=== PATIENT | female | born 1970 | race African-American/Black ===

== ENCOUNTER 2019-04-18 09:17 | Emergency (ER) | payer OTHER, SELFPAY ==
[2019-04-18 10:29] LABS: #Basophils 0.1 thou/uL (0.0-0.2); #Lymphocytes 3.7 thou/uL (1.20-3.40); #Monocytes 0.7 thou/uL (0.11-0.59); #Neutrophils 10.9 thou/uL (1.40-6.50); %Basophils 0.9 % (0.0-1.0); %Eosinophils 0.2 % (0.0-10.0); %Lymphocytes 23.8 % (21.0-51.0); %Monocytes 4.2 % (0.0-10.0); %Neutrophils 70.9 % (42.0-75.0); Mean Corpuscular HGB CONC 32.4 g/dL (32.0-36.0); Mean Corpuscular Hemoglobin 26.1 pg (27.0-31.0); Mean Corpuscular Volume 80.6 fL (78.0-98.0); Mean Platelet Volume 6.9 fL (7.4-10.4); Platelet Count 382 thou/uL (130-400); RBC Distribution Width 14.8 % (11.5-14.5); Red Blood Cell (RBC) Count 4.61 mill/uL (4.20-5.40); White Blood Cell (WBC) Count 15.4 thou/uL (4.8-10.8)
[2019-04-18 10:31] LABS: BHCG - Serum Negative (NEGATIVE); Pregs Control Background? CLEAR/WHITE (CLR/WHITE); Pregs Control Bar Appear? YES (CONTROL BAR)
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
[2019-04-18 10:51] LABS: ALT (SGPT) 24 U/L (8-55); AST (SGOT) 14 U/L (5-34); Albumin 3.8 g/dL (3.5-5.0); Alkaline Phosphatase 74 U/L (40-150); Anion Gap 16 mmol/L (10-20); BUN (Urea Nitrogen) 15 mg/dL (7.0-18.7); Bilirubin, Total 0.2 mg/dL (0.2-1.2); Calc. Creatinine Clearance 0 mL/min (70-130); Calcium 9.5 mg/dL (7.8-10.44); Carbon Dioxide 26 mmol/L (22-29); Chloride 97 mmol/L (98-107); Estimated GFR-MDRD 72; Globulin 3.2 g/dL (2.4-3.5); Glucose 203 mg/dL (70-105); Potassium 4.2 mmol/L (3.5-5.1); Sodium 135 mmol/L (136-145)
== END 2019-04-18 11:35 | disposition home or self-care (01) ==
LOC: ERS 09:17
DX: I10 Essential (primary) hypertension (principal); Z91.14 Patient's other noncompliance with medication regimen; E11.9 Type 2 diabetes mellitus without complications; F41.9 Anxiety disorder, unspecified; F31.9 Bipolar disorder, unspecified; Z79.84 Long term (current) use of oral hypoglycemic drugs; Z79.899 Other long term (current) drug therapy; Z79.51 Long term (current) use of inhaled steroids
CPT/HCPCS: 36415; 71045; 80053; 83880; 84484; 84703; 85025; 93005

== ENCOUNTER 2019-08-02 15:19 | Inpatient (IN) | payer MEDICAID, OTHER ==
[~2019-08-02 15:19] MED LIST: Iopamidol 370 76% 100 ML VIAL ONE
[2019-08-02] MEDS ORDERED: Acetaminophen 500 MG TAB ONE (15:28)
[2019-08-02 16:55] LABS: Hemoglobin 11.8 g/dL (12.0-16.0); Mean Corpuscular HGB CONC 33.5 g/dL (32.0-36.0); Mean Corpuscular Hemoglobin 26.1 pg (27.0-31.0); Mean Platelet Volume 7.3 fL (7.4-10.4); Platelet Count 319 thou/uL (130-400); RBC Distribution Width 14.3 % (11.5-14.5); White Blood Cell (WBC) Count 10.2 thou/uL (4.8-10.8)
[2019-08-02 17:15] LABS: Band 2 % (5-11); Lymphocytes 7 % (21-51); MDiff Complete? YES; Monocytes 9 % (0-10); Neutrophil 82 % (42-75); Platelet Morphology Comment Appears Adequate
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
[2019-08-02 17:24] LABS: ALT (SGPT) 10 U/L (8-55); AST (SGOT) 18 U/L (5-34); Albumin 3.9 g/dL (3.5-5.0); Alkaline Phosphatase 80 U/L (40-110); Anion Gap 17 mmol/L (10-20); BUN (Urea Nitrogen) 6 mg/dL (7.0-18.7); Bilirubin, Total 0.3 mg/dL (0.2-1.2); Calc. Creatinine Clearance 0 mL/min (70-130); Carbon Dioxide 18 mmol/L (22-29); Chloride 104 mmol/L (98-107); Estimated GFR-MDRD Greater than 90; Globulin 3.6 g/dL (2.4-3.5); Glucose 136 mg/dL (70-105); Lipase 21 U/L (8-78); Potassium 3.6 mmol/L (3.5-5.1); Protein, Total 7.5 g/dL (6.0-8.3); Sodium 135 mmol/L (136-145)
[2019-08-02] MEDS ORDERED: cefTRIAXone\\ROCEPHIN 2 GM VIAL ONE (17:42)
[2019-08-02 18:36] LABS: Bilirubin Negative (Negative); Blood, Urine Negative (Negative); Clarity Clear (Clear); Glucose, Urine (Dipstick) Normal (Negative); Leukocyte Negative Leu/uL (Negative); Nitrite Negative (Negative); Protein, Urine (Dipstick) Negative (Neg-Trace); Urobilinogen Normal mg/dL (Less than 2)
[2019-08-02 18:38] LABS: Pregnancy Test - Urine (BHCG) Negative (Negative); Pregu Control Background? CLEAR/WHITE (CLR/WHITE); Pregu Control Bar Appear? YES (CONTROL BAR); Specific Gravity 1.004 (1.002-1.036)
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
[2019-08-02 20:42] LABS: Troponin I 0.028 ng/mL (< 0.028)
[2019-08-02] MEDS ORDERED: Benzonatate 100 MG CAP PO PRN (20:54)
[2019-08-02] MEDS ORDERED: Ondansetron ODT 4 MG TAB PO PRN (20:54)
[2019-08-02] MEDS ORDERED: Sodium Chloride 0.9% 1,000 ML IV SCH (20:54)
[2019-08-02] MEDS ORDERED: Vancomycin HCl 1 GM in Sodium Chloride 0.9% 250 ML 300 ML IVPB SCH (21:00)
[2019-08-02 21:05] VITALS: BMI 48.6
[2019-08-02] MEDS: Famotidine 20 MG TAB PO SCH (21:34)
[2019-08-02] MEDS: hydrALAZINE 20 MG/ML VIAL SLOW IVP PRN (21:34)
[2019-08-02] MEDS: Acetaminophen 500 MG TAB PO PRN (21:35)
[2019-08-02] MEDS ORDERED: Vancomycin HCl 2.5 GM in Sodium Chloride 0.9% 500 ML IVPB SCH (22:00)
[2019-08-02] MEDS: Ondansetron PF 4 MG/2 ML Vial IVP PRN (22:00)
[2019-08-02 23:29] LABS: Troponin I 0.118 ng/mL (< 0.028)
[2019-08-02] MEDS: methylPREDNISolone Sod Succ 40 MG VIAL IVP SCH (23:51)
[2019-08-03 00:19] LABS: Lactic Acid 2.7 mmol/L (0.5-2.2)
[2019-08-03] MEDS ORDERED: Melatonin 3 MG TAB PO PRN (01:43)
[2019-08-03 03:47] LABS: CKMB 2.6 ng/mL (0-6.6)
[2019-08-03 05:34] LABS: Band 4 % (5-11); Hemoglobin 11.7 g/dL (12.0-16.0); Lymphocytes 2 % (21-51); MDiff Complete? YES; Mean Corpuscular Hemoglobin 26.3 pg (27.0-31.0); Mean Corpuscular Volume 79.5 fL (78.0-98.0); Monocytes 1 % (0-10); Neutrophil 93 % (42-75); Platelet Count 317 thou/uL (130-400); RBC Distribution Width 14.5 % (11.5-14.5); Red Blood Cell (RBC) Count 4.44 mill/uL (4.20-5.40); White Blood Cell (WBC) Count 11.4 thou/uL (4.8-10.8)
[2019-08-03 05:49] LABS: Anion Gap 16 mmol/L (10-20); BUN (Urea Nitrogen) 4 mg/dL (7.0-18.7); Calc. Creatinine Clearance 185 mL/min (70-130); Calcium 8.8 mg/dL (7.8-10.44); Carbon Dioxide 18 mmol/L (22-29); Chloride 105 mmol/L (98-107); Estimated GFR-MDRD Greater than 90; Glucose 179 mg/dL (70-105); Potassium 3.8 mmol/L (3.5-5.1); Sodium 135 mmol/L (136-145)
[2019-08-03] MEDS: Cefepime 2 GM in Sodium Chloride 0.9% 100 ML IVPB SCH ×2 (06:10→18:06)
[2019-08-03] MEDS: methylPREDNISolone Sod Succ 40 MG VIAL IVP SCH ×4 (06:11→23:59)
[2019-08-03] MEDS: Mometasone/Formoterol 120 PUFF INHALER INH SCH ×2 (07:29→18:40)
[2019-08-03] MEDS: hydrALAZINE 20 MG/ML VIAL SLOW IVP PRN (08:44)
[2019-08-03] MEDS: Famotidine 20 MG TAB PO SCH ×2 (08:45→20:41)
[2019-08-03] MEDS: Acetaminophen 500 MG TAB PO PRN (08:46)
[2019-08-03] MEDS: Ondansetron PF 4 MG/2 ML Vial IVP PRN ×2 (08:46→18:10)
[2019-08-03] MEDS ORDERED: FLU VACC QS2019-20(6MOS UP)/PF 60 MCG/0.5 ML SYRINGE IM ONE (09:00)
[2019-08-03] MEDS ORDERED: BENZONATATE 200 MG PO PRN (09:32)
[2019-08-03] MEDS ORDERED: Lisinopril 10 MG TAB PO SCH (10:15)
[2019-08-03] MEDS ORDERED: Losartan 25 MG TAB PO SCH (10:15)
[2019-08-03] MEDS: Aspirin 325 mg Enteric Coated Tablet PO SCH (10:28)
[2019-08-03] MEDS: Ketorolac Tromethamine 30 MG/ML VIAL IVP SCH ×3 (10:28→21:02)
[2019-08-03] MEDS: Sodium Chloride 0.9% 1,000 ML IV SCH ×3 (10:31→18:07)
[2019-08-03 13:26] LABS: Amphetamine Not Detected (NotDetected); Barbiturates Screen Not Detected (NotDetected); Benzodiazepine Screen Not Detected (NotDetected); Cocaine Metabolite Screen Not Detected (NotDetected); Medtox Control Line Valid? VALID (VALID); Medtox Reader # READER 1; Methadone Not Detected (NotDetected); Methamphetamine Not Detected (NotDetected); Opiate Screen Not Detected (NotDetected); Oxycodone Screen Not Detected (NotDetected); Phencyclidine (PCP) Not Detected (NotDetected); THC/Cannabinoid Screen Detected (NotDetected); Tricyclic Screen Not Detected (NotDetected)
[2019-08-03 14:29] LABS: Troponin I 0.324 ng/mL (< 0.028)
[2019-08-03] MEDS: metFORMIN 500 MG TAB PO SCH (16:20)
--- NOTE | 2019-08-03 16:29 | PDOC.HOSPP ---
- Subjective Encounter Date: 08/03/19 Encounter Time: 16:20 Subjective: f/u for sepsis suspected from pulmonary source, asthmatic bronchitis and NSTEMI from demand ischemia. Feels better this pm and appetite ok. - Objective Vital Signs & Weight: Vital Signs (12 hours) Temp Pulse Resp BP BP BP Pulse Ox 08/03/19 15:48 98.9 F 97 16 149/93 H 97 08/03/19 14:11 101 H 18 08/03/19 12:29 14 08/03/19 11:51 99.1 F 108 H 28 H 134/93 H 96 08/03/19 11:00 107 H 20 08/03/19 10:27 145/85 H 08/03/19 08:30 101.8 F H 113 H 16 187/118 H 96 08/03/19 08:00 96 08/03/19 07:29 111 H 20 95 Weight Weight 301 lb 6.4 oz I&O: 08/02/19 08/03/19 08/04/19 06:59 06:59 06:59 Intake Total 1555 Balance 1555 Result Diagrams: 08/03/19 05:07 08/03/19 05:07 Additional Labs: Accuchecks 08/03/19 08/03/19 10:20 05:41 POC Glucose 195 H 165 H Microbiology 08/02/19 15:40 Nasal swab Influenza Types A,B Direct EIA - Final 08/02/19 18:10 Urine voided Urine Culture - Preliminary 08/02/19 16:34 Venous blood - Right Arm Blood Culture - Preliminary Specimen has been received and culture in progress. No Growth to date. 08/02/19 16:34 Venous blood - Left Hand Blood Culture - Preliminary Specimen has been received and culture in progress. No Growth to date. Laboratory Tests 08/02/19 08/02/19 08/02/19 16:40 16:40 20:07 WBC 10.2 Troponin I Less than 0.010 0.028 B-Natriuretic Peptide U Cannabinoids Screen 08/02/19 08/03/19 08/03/19 22:53 02:31 12:40 WBC Troponin I 0.118 H 0.255 H B-Natriuretic Peptide U Cannabinoids Screen Detected H 08/03/19 08/03/19 13:37 13:37 WBC Troponin I 0.324 H* B-Natriuretic Peptide 458.1 H U Cannabinoids Screen EKG Reviewed by me: Yes (Tele - SR) Hospitalist ROS - Medication Medications: Active Medications Generic Name Dose Route Start Last Admin Trade Name Sahil PRN Reason Stop Dose Admin Acetaminophen 1,000 mg 08/02/19 20:54 08/03/19 08:46 Tylenol PO 1,000 mg Q6H PRN Administration Mild Pain (1-3) Albuterol/Ipratropium 3 ml 08/02/19 22:30 08/03/19 14:11 Duoneb NEB 3 ml [id number] DIONE Administration Aspirin 325 mg 08/03/19 09:00 08/03/19 10:28 Ecotrin PO 325 mg DAILY DIONE Administration Famotidine 20 mg 08/02/19 21:00 08/03/19 08:45 Pepcid PO 20 mg BID DIONE Administration Hydralazine HCl 10 mg 08/02/19 20:54 08/03/19 08:44 Apresoline SLOW IVP 10 mg Q4H PRN Administration SBP > 180 and HR < 70 Cefepime HCl 2 gm/ Sodium 100 mls @ 200 mls/hr 08/03/19 06:00 08/03/19 06:10 Chloride IVPB 100 mls 0600,1800 DIONE Administration Vancomycin HCl 2 gm/ Sodium 500 mls @ 250 mls/hr 08/03/19 09:00 08/03/19 10: 31 Chloride IVPB 500 mls Q12HR DIONE Administration Sodium Chloride 1,000 mls @ 100 mls/hr 08/03/19 09:40 08/03/19 16:23 Normal Saline 0.9% IV 1,000 mls .Q10H DIONE Administration Ketorolac Tromethamine 30 mg 08/03/19 10:00 08/03/19 16:11 Toradol IVP 08/08/19 10:01 30 mg 0400,1000,1600,2200 DIONE Administration Melatonin 3 mg 08/03/19 01:43 08/03/19 02:24 Melatonin PO 3 mg HS PRN Administration Insomnia Metformin HCl 1,000 mg 08/03/19 17:00 08/03/19 16:20 Glucophage PO 1,000 mg BID-WM DIONE Administration Methylprednisolone Sodium Succinate 40 mg 08/02/19 23:59 08/03/19 12:17 Solu-Medrol IVP 40 mg Q6HR DIONE Administration Mometasone Furoate/Formoterol Fumar 2 puff 08/03/19 06:30 08/03/19 07:29 Dulera 200 Mcg/5 Mcg Inhaler INH 2 puff BID-RT DIONE Administration Ondansetron HCl 4 mg 08/02/19 20:54 08/03/19 08:46 Zofran IVP 4 mg Q6H PRN Administration Nausea/Vomiting - Exam General Appearance: NAD, awake alert Eye: PERRL, anicteric sclera ENT: normocephalic atraumatic, no oropharyngeal lesions Neck: supple, symmetric, no JVD, no thyromegaly, no lymphadenopathy Heart: RRR, no murmur, no gallops, no rubs, normal peripheral pulses Respiratory: no rales Respiratory - other findings: few exp wheezes, diminished in bases Gastrointestinal: soft, non-tender, non-distended, normal bowel sounds, no palpable masses Extremities: no cyanosis, no clubbing, no edema Skin: normal turgor, no lesions Neurological: cranial nerve grossly intact, no focal deficits, no new deficit Musculoskeletal: normal tone, normal strength Psychiatric: normal affect, A&O x 3 Hosp A/P (1) Sepsis Code(s): A41.9 - SEPSIS, UNSPECIFIED ORGANISM Status: Acute Plan: Suspected pulmonary source, continue Cefepime/Vancomycin, IVF's, await final blood cx results (2) Acute respiratory failure with hypoxia Code(s): J96.01 - ACUTE RESPIRATORY FAILURE WITH HYPOXIA Status: Acute Plan: Improved, continue pulmonary support, see below (3) Asthmatic bronchitis Code(s): J45.909 - UNSPECIFIED ASTHMA, UNCOMPLICATED Status: Acute Plan: Continue Solumedrol, Dulera, Duonebs, IV Cefepime/Vanc (4) NSTEMI (non-ST elevated myocardial infarction) Code(s): I21.4 - NON-ST ELEVATION (NSTEMI) MYOCARDIAL INFARCTION Status: Acute Plan: Type II VT, demand ischemia in context of sepsis, Cardiology consult appreciated (5) Cannabis abuse Code(s): F12.10 - CANNABIS ABUSE, UNCOMPLICATED Status: Chronic Plan: Cessation resources (6) HTN (hypertension) Code(s): I10 - ESSENTIAL (PRIMARY) HYPERTENSION Status: Chronic Qualifiers: Hypertension type: essential hypertension Qualified Code(s): I10 - Essential (primary) hypertension Plan: Resume home BP regimen, monitor clinical response - Plan plan discussed w/ family, continue antibiotics, social worker masters, respiratory therapy, DVT proph w/SCDs Stable currently Continue Solumedrol, Duonebs, Dulera Continue Cefepime/Vancomycin Cardiology consult appreciated AM lab: BMP, CBC, Troponin, Vanc trough
[2019-08-03] MEDS ORDERED: guaiFENesin/DM ER PO SCH (18:00)
[2019-08-03] MEDS ORDERED: Carvedilol 3.125 MG TAB PO SCH (18:30)
[2019-08-03] MEDS ORDERED: Amlodipine 5 MG TAB PO SCH (19:15)
[2019-08-03] MEDS: Montelukast Sodium 10 mg Tablet PO SCH (20:41)
[2019-08-03] MEDS: hydrOXYzine 25 MG TAB PO SCH (20:41)
[2019-08-03] MEDS: Atorvastatin Calcium 10 MG TAB PO SCH (20:41)
[2019-08-03] MEDS: Benzonatate 100 MG CAP PO PRN (20:48)
[2019-08-03] MEDS ORDERED: Pravastatin Sodium 40 MG TAB PO SCH (21:00)
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
--- NOTE | 2019-08-04 02:29 | CON ---
DATE OF CONSULTATION: 08/03/2019 Please refer the notes dictated by my nurse practitioner, Letha Hernandez. INDICATION FOR CONSULTATION: A 48-year-old female with a history of asthma, shortness of breath, chest discomfort and risk factors, coronary artery disease which include hypertension, diabetes, history of marijuana use, family history of coronary disease at a relatively young age. Both her parents in their 40s to 50s, had heart disease according to the patient and she also says she has high cholesterol. I do not see that listed as one of her diagnosis, but she is on Pravachol. I suspect she does have hypercholesterolemia. She presented to the emergency room mainly complaining of some discomfort when she coughed, but at that time, her cardiac enzymes were also indeterminate, which could indicate a type 2 myocardial infarction. Unfortunately, they have remained slightly elevated, but have actually trended downwards. Her BNP was also elevated at 458, but the first troponin I was 0.118 and then increased up to 0.255. The 3rd set was 0.324, but now has decreased back down to 0.27. The MB was negative at 2.6. She denies any previous cardiac history and has not had any previous cardiac workup that I can ascertain. At this time, she is relatively stable. She denies any chest pain except when she coughs and her EKG does not show any acute changes. She did have some nonspecific ST-segment changes in the lateral leads, but otherwise no significant abnormalities were noted. No ST-segment elevation was indicated. PAST MEDICAL HISTORY: Please refer the notes dictated by the nurse practitioner. SOCIAL HISTORY: Please refer the notes dictated by the nurse practitioner. FAMILY HISTORY: Please refer the notes dictated by the nurse practitioner. REVIEW OF SYSTEMS: Please refer the notes dictated by the nurse practitioner. MEDICATIONS: Please refer the notes dictated by the nurse practitioner. ALLERGIES: PLEASE REFER THE NOTES DICTATED BY THE NURSE PRACTITIONER. PHYSICAL EXAMINATION: GENERAL: Reveals a morbidly obese female, who is in no acute distress at this time. VITAL SIGNS: Her blood pressure is 149/93. She is afebrile. Heart rates in the 80s to 90s, it shows a normal sinus rhythm, respiratory rate is 20, O2 saturation is 99%. HEENT: Unremarkable. CHEST: Has decreased breath sounds throughout, but I do not hear any rales, rhonchi, or wheezing at this time. CARDIOVASCULAR: Heart sounds are also distant, but I did not hear any significant murmurs, heaves, thrills, bruits, or rubs. ABDOMEN: Morbidly obese. I cannot palpate any tenderness or masses. EXTREMITIES: Did show 1+ lower extremity edema. Pedal pulses are difficult to palpate, most likely due to the obesity and the edema. NEUROLOGIC: She appears to be relatively intact. SKIN: Warm and dry at this time. LABORATORY DATA: Noted for the cardiac enzymes. Her sodium is 135, potassium is 3.8. Her creatinine is 0.82 with a BUN 4. Blood sugar was 179. Hemoglobin is 11.7, WBC 11.4, platelet count was 317,000. Urinalysis was unremarkable. She does admit to smoking marijuana and then she did have a positive drug screen for cannabis. IMPRESSION: 1. Asthma and chronic obstructive pulmonary disease exacerbation with elevated cardiac enzymes, which most likely indicate type 2 [id number] elevation myocardial infarction, which most likely was associated with demand ischemia, associated with her asthma and chronic coughing, but would advise she undergo probably a 2-day protocol stress test to rule out evidence of underlying ischemia as a possible etiology of the abnormalities since she does have risk factors of coronary artery disease. 2. Diabetes, which will be dealt with by the primary care service. 3. Hypercholesterolemia. We will continue with statins. 4. Hypertension. We will need to re-evaluate her blood pressures and may need to adjust some of her medications, can certainly start her on amlodipine to help with the hypertension. We would hold off on beta blockers at this time due to her history of asthma. We are more than happy to continue to follow the patient with you. We will schedule her for stress testing tomorrow. Should she be found to have any significant abnormalities, then obviously cardiac catheterization may be indicated prior to discharge. Job ID: [id number]
[2019-08-04 05:00] LABS: Band 6 % (5-11); Hemoglobin 11.4 g/dL (12.0-16.0); Lymphocytes 10 % (21-51); MDiff Complete? YES; Mean Corpuscular HGB CONC 33.2 g/dL (32.0-36.0); Mean Corpuscular Hemoglobin 26.4 pg (27.0-31.0); Mean Corpuscular Volume 79.4 fL (78.0-98.0); Mean Platelet Volume 7.4 fL (7.4-10.4); Monocytes 3 % (0-10); Neutrophil 81 % (42-75); Platelet Count 298 thou/uL (130-400); Platelet Morphology Comment Appears Adequate; RBC Distribution Width 14.6 % (11.5-14.5); Red Blood Cell (RBC) Count 4.32 mill/uL (4.20-5.40); White Blood Cell (WBC) Count 11.2 thou/uL (4.8-10.8)
[2019-08-04 05:01] LABS: Anion Gap 16 mmol/L (10-20); BUN (Urea Nitrogen) 9 mg/dL (7.0-18.7); Calc. Creatinine Clearance 185 mL/min (70-130); Calcium 7.8 mg/dL (7.8-10.44); Carbon Dioxide 18 mmol/L (22-29); Chloride 108 mmol/L (98-107); Estimated GFR-MDRD Greater than 90; Glucose 181 mg/dL (70-105); Potassium 3.6 mmol/L (3.5-5.1); Sodium 138 mmol/L (136-145)
[2019-08-04] MEDS: Ketorolac Tromethamine 30 MG/ML VIAL IVP SCH ×5 (05:09→22:17)
[2019-08-04] MEDS: methylPREDNISolone Sod Succ 40 MG VIAL IVP SCH ×3 (05:10→17:12)
[2019-08-04] MEDS: Cefepime 2 GM in Sodium Chloride 0.9% 100 ML IVPB SCH ×2 (05:10→17:11)
[2019-08-04] MEDS ORDERED: Carvedilol 3.125 MG TAB PO SCH (08:00)
[2019-08-04] MEDS: Mometasone/Formoterol 120 PUFF INHALER INH SCH ×2 (08:01→19:14)
[2019-08-04 08:39] LABS: Vancomycin, Trough 11.1 ug/mL
[2019-08-04] MEDS ORDERED: Lisinopril 10 MG TAB PO SCH (09:00)
[2019-08-04] MEDS ORDERED: Non-Formulary Item 1 EACH (Potassium Chloride [Potassium Chloride] 10 MEQ) PO SCH (09:00)
[2019-08-04] MEDS ORDERED: Vancomycin HCl 1.75 GM in Sodium Chloride 0.9% 500 ML IVPB SCH (10:00)
[2019-08-04] MEDS: metFORMIN 500 MG TAB PO SCH ×2 (12:00→17:11)
[2019-08-04] MEDS: Amlodipine 5 MG TAB PO SCH (12:00)
[2019-08-04] MEDS: Losartan 25 MG TAB PO SCH (12:01)
[2019-08-04] MEDS: Aspirin 325 mg Enteric Coated Tablet PO SCH (12:01)
[2019-08-04] MEDS: Potassium Chloride 10 MEQ TAB PO SCH (12:02)
[2019-08-04] MEDS: guaiFENesin/DM ER PO SCH ×2 (12:02→20:52)
[2019-08-04] MEDS: Famotidine 20 MG TAB PO SCH ×2 (12:02→20:42)
[2019-08-04] MEDS: Sodium Chloride 0.9% 1,000 ML IV SCH ×2 (13:17→20:53)
--- NOTE | 2019-08-04 13:59 | PDOC.CPN ---
- Subjective Date: 08/04/19 Time: 13:59 Interval history: The pt seen and examined. No overnight events. She cont having mild chest tightness in MS area with SOB and cough. - Objective Allergies/Adverse Reactions: Allergies Allergy/AdvReac Type Severity Reaction Status Date / Time No Known Allergies Allergy Verified 08/02/19 20:57 Visit Medications: Current Medications Acetaminophen (Tylenol) 1,000 mg PO Q6H PRN PRN Reason: Mild Pain (1-3) Last Admin: 08/03/19 08:46 Dose: 1,000 mg Albuterol/Ipratropium (Duoneb) 3 ml NEB [id number] [facility] Last Admin: 08/04/19 11:22 Dose: 3 ml Amlodipine Besylate (Norvasc) 5 mg PO DAILY [facility] Last Admin: 08/04/19 12:00 Dose: 5 mg Aspirin (Ecotrin) 325 mg PO DAILY [facility] Last Admin: 08/04/19 12:01 Dose: 325 mg Atorvastatin Calcium (Lipitor) 10 mg PO HS [facility] Last Admin: 08/03/19 20:41 Dose: 10 mg Benzonatate (Tessalon) 200 mg PO TIDPRN PRN PRN Reason: Cough Last Admin: 08/03/19 20:48 Dose: 200 mg Famotidine (Pepcid) 20 mg PO BID [facility] Last Admin: 08/04/19 12:02 Dose: 20 mg Guaifenesin/Dextromethorphan (Mucinex Dm) 1 tab PO Q12HR [facility] Last Admin: 08/04/19 12:02 Dose: 1 tab Hydralazine HCl (Apresoline) 10 mg SLOW IVP Q4H PRN PRN Reason: SBP > 180 and HR < 70 Last Admin: 08/03/19 08:44 Dose: 10 mg Hydroxyzine HCl (Atarax) 25 mg PO HS [facility] Last Admin: 08/03/19 20:41 Dose: 25 mg Cefepime HCl 2 gm/ Sodium (Chloride) 100 mls @ 200 mls/hr IVPB 0600,1800 [facility] Last Admin: 08/04/19 05:10 Dose: 100 mls Sodium Chloride (Normal Saline 0.9%) 1,000 mls @ 75 mls/hr IV .[id number] [facility] Last Admin: 08/04/19 13:17 Dose: 1,000 mls Ketorolac Tromethamine (Toradol) 30 mg IVP 0100,0700,1300,1900 [facility] Stop: 08/09/19 13:01 Last Admin: 08/04/19 13:28 Dose: 30 mg Losartan Potassium (Cozaar) 50 mg PO DAILY [facility] Last Admin: 08/04/19 12:01 Dose: 50 mg Melatonin (Melatonin) 3 mg PO HS PRN PRN Reason: Insomnia Last Admin: 08/03/19 02:24 Dose: 3 mg Metformin HCl (Glucophage) 1,000 mg PO BID-WM [facility] Last Admin: 08/04/19 12:00 Dose: 1,000 mg Methylprednisolone Sodium Succinate (Solu-Medrol) 40 mg IVP Q6HR [facility] Last Admin: 08/04/19 13:29 Dose: 40 mg Mometasone Furoate/Formoterol Fumar (Dulera 200 Mcg/5 Mcg Inhaler) 2 puff INH BID-RT [facility] Last Admin: 08/04/19 08:01 Dose: 2 puff Montelukast Sodium (Singulair) 10 mg PO HS [facility] Last Admin: 08/03/19 20:41 Dose: 10 mg Ondansetron HCl (Zofran Odt) 4 mg PO Q6H PRN PRN Reason: Nausea/Vomiting Ondansetron HCl (Zofran) 4 mg IVP Q6H PRN PRN Reason: Nausea/Vomiting Last Admin: 08/03/19 18:10 Dose: 4 mg Potassium Chloride (Klor-Con 10) 10 meq PO DAILY [facility] Last Admin: 08/04/19 12:02 Dose: 10 meq Sodium Chloride (Flush - Normal Saline) 10 ml IVF Q12HR [facility] Last Admin: 08/04/19 12:03 Dose: 10 ml Sodium Chloride (Flush - Normal Saline) 10 ml IVF PRN PRN PRN Reason: Saline Flush Vital Signs & Weight: Vital Signs Temp Pulse Resp BP BP Pulse Ox 08/04/19 11:48 99.1 F 110 H 24 H 173/95 H 97 08/04/19 11:22 90 16 08/04/19 08:01 93 16 93 L 08/04/19 07:55 97 08/04/19 07:52 93 16 08/04/19 07:12 98.5 F 92 17 137/92 H 98 08/04/19 04:15 99.5 F 105 H 20 140/89 95 Weight 301 lb 6.4 oz - Physical Exam General: alert & oriented x3 Cardiac: regular rate and rhythm, S1/S2 Lungs: decreased breath sounds Neuro: cranial nerve 2-12 intact Extremities: no cyanosis Skin: clear Musculoskeletal: normal range of motion - Labs Result Diagrams: 08/04/19 04:05 08/04/19 04:05 Troponin/CKMB CK-MB (CK-2) 2.6 ng/mL (0-6.6) 08/03/19 02:31 Troponin I 0.270 ng/mL (< 0.028) H 08/03/19 16:46 - Telemetry Sinus rhythms and dysrhythmias: other (SR-ST) - Assessment/Plan Assessment/Plan: 1. Type II MO - cont having mild tightness in MS area with SOB and cough; No Tele changes; 2. Sepsis - on ABX IV; managed by PCP 3. HTN - stable 4. DM type 2 - managed by PCP 5. Asthmatic bronchitis - on breathing tx 6. Cannabis abuse MAR reviewed Pt. seen and eval. by me. She denies chest pain. I agree with the A/P by the RECOVERY COORDINATOR. Still wheezing. RRR. 2 day protocol stress test.,
--- NOTE | 2019-08-04 15:54 | PRG ---
DATE OF SERVICE: 08/04/2019 SUBJECTIVE: The patient is seen and examined at the bedside. She just came back from the first part of her stress test. She feels nervous. OBJECTIVE: VITAL SIGNS: Blood pressure is 135/87, pulse is 97, temperature is 99.3, respiratory rate is 16, O2 saturation is 98% on room air. GENERAL: She is obese woman with BMI of 48.6. HEENT: Her eyes are PERRLA. Sclerae are nonicteric. Oral mucosa is moist. NECK: Supple, obese. LUNGS: Bilateral rales present. Few wheezes bilaterally. HEART: S1 and S2, somewhat distant. No S3. No S4. ABDOMEN: Obese, soft, nontender. EXTREMITIES: 1+ peripheral edema similar bilaterally on both lower extremities. LABORATORY DATA: White count of 11.2, hemoglobin of 11.4, hematocrit 34.3, platelet count is 298,000. Sodium of 138, potassium 3.6, chloride 108, CO2 of 18, BUN 9, creatinine 0.82, glycemia is ranging from 154 to 298, and calcium is 7.8. Vancomycin trough is 11. Microbiology, no new findings. IMPRESSION: 1. Sepsis. 2. Acute respiratory failure with hypoxia. 3. Asthmatic bronchitis. 4. Non-ST segment elevation myocardial infarction, which is type 2 myocardial infarction. 5. Cannabis user. 6. Hypertension. PLAN: We are going to discontinue her IV fluids. We are going to discontinue her vancomycin. Continue her cefepime. She is supposed to have the second part of her stress test done tomorrow. We will continue her IV steroids and DuoNebs, and most likely, she will be able to go home in the next 24 to 48 hours. Job ID: [id number]
[2019-08-04] MEDS ORDERED: Regadenoson 0.4 MG/5 ML SYRINGE ONE (19:53)
[2019-08-04] MEDS: Montelukast Sodium 10 mg Tablet PO SCH (20:41)
[2019-08-04] MEDS: hydrOXYzine 25 MG TAB PO SCH (20:42)
[2019-08-04] MEDS: Atorvastatin Calcium 10 MG TAB PO SCH (20:42)
[2019-08-04] MEDS: hydrALAZINE 20 MG/ML VIAL SLOW IVP PRN (22:18)
[2019-08-05] MEDS: methylPREDNISolone Sod Succ 40 MG VIAL IVP SCH ×3 (00:08→11:17)
[2019-08-05] MEDS: Ketorolac Tromethamine 30 MG/ML VIAL IVP SCH ×4 (00:09→20:16)
[2019-08-05] MEDS ORDERED: Dextrose 50% Abboject 50 ML SYRINGE SLOW IVP PRN (04:48)
[2019-08-05] MEDS ORDERED: Dextrose 5% in Water 1,000 ML IV PRN (04:48)
[2019-08-05] MEDS: Cefepime 2 GM in Sodium Chloride 0.9% 100 ML IVPB SCH (05:21)
[2019-08-05] MEDS: Mometasone/Formoterol 120 PUFF INHALER INH SCH ×2 (07:27→18:14)
[2019-08-05] MEDS: guaiFENesin/DM ER PO SCH ×2 (10:42→20:17)
[2019-08-05] MEDS: Amlodipine 5 MG TAB PO SCH (10:42)
[2019-08-05] MEDS: Aspirin 325 mg Enteric Coated Tablet PO SCH (10:42)
[2019-08-05] MEDS: Losartan 25 MG TAB PO SCH (10:42)
[2019-08-05] MEDS: metFORMIN 500 MG TAB PO SCH ×2 (10:42→16:46)
[2019-08-05] MEDS: Potassium Chloride 10 MEQ TAB PO SCH (10:43)
[2019-08-05] MEDS: Famotidine 20 MG TAB PO SCH ×2 (10:43→20:17)
[2019-08-05] MEDS: Sodium Chloride 0.9% 1,000 ML IV SCH ×2 (10:43→20:28)
[2019-08-05] MEDS: Insulin Regular 300 UNITS/3 ML VIAL SC PRN ×3 (10:49→20:23)
--- NOTE | 2019-08-05 11:27 | NM ---
NUCLEAR MEDICINE CARDIAC MYOCARDIAL PERFUSION SPECT EJECTION FRACTION STUDY WALL MOTION CINE: DATE: 08/05/2019 HISTORY: 48-year-old female with hypertension, diabetes mellitus, and family history of coronary artery diseas e, presents with chest pain. TECHNIQUE: Number of days: 2 Rest study: Technetium 99m-sestamibi (Cardiolite) dose: 32.4 mCi Pharmacologic stress: Lexiscan dose: 0.4 mg Stress study: Technetium 99m-sestamibi (Cardiolite) dose: 31.5 mCi Because of interference due to bowel activity, the patient was rescanned after the original stress im ages. Because of the delay in time, the stress images are suboptimal, with overall low radiopharmaceutical activity. The rest images are of acceptable quality. FINDINGS: CARDIAC (MYOCARDIAL PERFUSION) SPECT There are no convincing reversible myocardial perfusion defects. EJECTION FRACTION STUDY Left ventricular EF = 49 % WALL MOTION CINE No focal wall motion abnormality identified. IMPRESSION: 1. Suboptimal study. 2. No convincing evidence of reversible ischemia.
[2019-08-05] MEDS ORDERED: Milk Of Magnesia 30 ML UDCUP PO PRN (12:16)
--- NOTE | 2019-08-05 15:30 | PRG ---
DATE OF SERVICE: 08/05/2019 SUBJECTIVE: The patient is seen and examined at the bedside. She just finished her 2nd part of stress test. She is getting breathing treatments. OBJECTIVE: VITAL SIGNS: Blood pressure is 153/91, pulse is 94, temperature is 98.5, respiratory rate is 16, O2 saturation 95% on room air. HEENT: Head is atraumatic and normocephalic. She is obese. Her BMI is more than 48. Conjunctivae pinkish. Oral mucosa is moist. NECK: Supple. Obese. LUNGS: Wheezes and rales bilaterally, improved. HEART: S1 and S2 normal. No S3. No S4. ABDOMEN: Soft, obese, nontender. EXTREMITIES: Trace of peripheral edema on both lower extremities. NEUROLOGIC: She is alert and oriented x4. There are no any motor or sensory deficits. LABORATORY DATA: Labs showed glycemia ranging from 231 to 275. Echocardiogram shows LVEF of 50% to 55%, mild mitral regurgitation, mild tricuspid and mild pulmonic regurgitation present. Stress test nuclear medicine showed a suboptimal study. No convincing evidence of reversible ischemia. No focal wall abnormalities. LVEF is estimated at 49%. IMPRESSION: 1. Sepsis. 2. Acute respiratory failure with hypoxia, improved. 3. Asthmatic bronchitis, improved. 4. Non ST-segment elevation myocardial infarction, which is type 2 myocardial infarction. 5. Cannabis user. 6. Hypertension. PLAN: Discontinue cefepime. Switch to oral levofloxacin. Discontinue Solu-Medrol and switch to prednisone 40 mg daily. We are waiting for Cardiology to evaluate results of her stress test and give us more recommendations. She will continue her DuoNeb. Job ID: [id number]
[2019-08-05] MEDS: Atorvastatin Calcium 10 MG TAB PO SCH (20:17)
[2019-08-05] MEDS: hydrOXYzine 25 MG TAB PO SCH (20:17)
[2019-08-05] MEDS: Montelukast Sodium 10 mg Tablet PO SCH (20:17)
[2019-08-06] MEDS: Ketorolac Tromethamine 30 MG/ML VIAL IVP SCH ×4 (00:22→17:30)
[2019-08-06] MEDS: Benzonatate 100 MG CAP PO PRN (06:17)
[2019-08-06] MEDS: Mometasone/Formoterol 120 PUFF INHALER INH SCH ×2 (07:04→18:16)
[2019-08-06] MEDS: predniSONE 20 MG TAB PO SCH (08:41)
[2019-08-06] MEDS: Losartan 25 MG TAB PO SCH (08:41)
[2019-08-06] MEDS: Aspirin 325 mg Enteric Coated Tablet PO SCH (08:41)
[2019-08-06] MEDS: metFORMIN 500 MG TAB PO SCH ×2 (08:41→16:17)
[2019-08-06] MEDS: Famotidine 20 MG TAB PO SCH ×2 (08:42→20:28)
[2019-08-06] MEDS: Amlodipine 5 MG TAB PO SCH (08:42)
[2019-08-06] MEDS: guaiFENesin/DM ER PO SCH ×2 (08:42→20:29)
[2019-08-06] MEDS: Potassium Chloride 10 MEQ TAB PO SCH (08:42)
[2019-08-06 09:31] LABS: #Lymphocytes 1.5 thou/uL (1.20-3.40); #Monocytes 0.4 thou/uL (0.11-0.59); #Neutrophils 8.2 thou/uL (1.40-6.50); %Basophils 0.1 % (0.0-1.0); %Eosinophils 0.1 % (0.0-10.0); %Lymphocytes 15.3 % (21.0-51.0); %Monocytes 3.6 % (0.0-10.0); %Neutrophils 80.9 % (42.0-75.0); Hemoglobin 12.1 g/dL (12.0-16.0); Mean Corpuscular HGB CONC 32.9 g/dL (32.0-36.0); Mean Corpuscular Volume 79.1 fL (78.0-98.0); Mean Platelet Volume 7.2 fL (7.4-10.4); Platelet Count 328 thou/uL (130-400); RBC Distribution Width 14.8 % (11.5-14.5); Red Blood Cell (RBC) Count 4.65 mill/uL (4.20-5.40); White Blood Cell (WBC) Count 10.1 thou/uL (4.8-10.8)
[2019-08-06 09:52] LABS: Anion Gap 17 mmol/L (10-20); BUN (Urea Nitrogen) 9 mg/dL (7.0-18.7); Calc. Creatinine Clearance 196 mL/min (70-130); Calcium 8.8 mg/dL (7.8-10.44); Carbon Dioxide 20 mmol/L (22-29); Chloride 102 mmol/L (98-107); Estimated GFR-MDRD Greater than 90; Glucose 251 mg/dL (70-105); Iron 32 ug/dL (50-170); Iron Binding Capacity, Total 310 mcg/dL (265-497); Potassium 3.1 mmol/L (3.5-5.1); Sodium 136 mmol/L (136-145)
--- NOTE | 2019-08-06 11:40 | PDOC.HOSPP ---
- Subjective Encounter Date: 08/06/19 Encounter Time: 10:38 Subjective: 48 y/o female with know history of asthma, HTN and HLd admitted with worsening cough and SOB associated with wheezing and chest discomfort. Feeling better but still wheezing. Fever has subsided. - Objective Vital Signs & Weight: Vital Signs (12 hours) Temp Pulse Resp BP Pulse Ox 08/06/19 11:22 98.3 F 87 17 173/99 H 98 08/06/19 10:12 75 18 98 08/06/19 07:27 98.0 F 81 21 H 177/92 H 98 08/06/19 07:02 69 18 98 08/06/19 03:45 97.8 F 77 16 134/95 H 97 08/06/19 01:56 83 18 99 08/06/19 00:00 20 Weight Weight 300 lb I&O: 08/05/19 08/06/19 08/07/19 06:59 06:59 06:59 Intake Total 2230 1343 Output Total 400 200 Balance 1830 1143 Result Diagrams: 08/06/19 09:22 08/06/19 09:22 Additional Labs: Accuchecks 08/06/19 08/05/19 08/05/19 05:26 20:11 16:42 POC Glucose 205 H 248 H 285 H Hospitalist ROS - Medication Medications: Active Medications Generic Name Dose Route Start Last Admin Trade Name Freq PRN Reason Stop Dose Admin Acetaminophen 1,000 mg 08/02/19 20:54 08/03/19 08:46 Tylenol PO 1,000 mg Q6H PRN Administration Mild Pain (1-3) Albuterol/Ipratropium 3 ml 08/02/19 22:30 08/06/19 10:12 Duoneb NEB 3 ml [id number] [facility] Administration Aspirin 325 mg 08/03/19 09:00 08/06/19 08:41 Ecotrin PO 325 mg DAILY [facility] Administration Atorvastatin Calcium 10 mg 08/03/19 21:00 08/05/19 20:17 Lipitor PO 10 mg HS [facility] Administration Benzonatate 200 mg 08/03/19 09:37 08/06/19 06:17 Tessalon PO 200 mg TIDPRN PRN Administration Cough Famotidine 20 mg 08/02/19 21:00 08/06/19 08:42 Pepcid PO 20 mg BID [facility] Administration Guaifenesin/Dextromethorphan 1 tab 08/04/19 09:00 08/06/19 08:42 Mucinex Dm PO 1 tab Q12HR [facility] Administration Hydralazine HCl 10 mg 08/02/19 20:54 08/04/19 22:18 Apresoline SLOW IVP 10 mg Q4H PRN Administration SBP > 180 and HR < 70 Hydroxyzine HCl 25 mg 08/03/19 21:00 08/05/19 20:17 Atarax PO 25 mg HS [facility] Administration Insulin Human Regular 0 units 08/05/19 04:48 08/05/19 16:44 Humulin R SC 4 unit .MILD SLIDING SCALE PRN Administration Mild Correctional Scale Insulin Human Regular 0 units 08/05/19 04:48 08/05/19 20:23 Humulin R SC 2 unit .BEDTIME SLIDING SC PRN Administration Bedtime Correctional Scale Ketorolac Tromethamine 30 mg 08/06/19 06:00 08/06/19 06:08 Toradol IVP 08/09/19 12:01 30 mg Q6HR [facility] Administration Magnesium Hydroxide 30 ml 08/05/19 12:16 08/05/19 14:45 Milk Of Magnesium PO 30 ml DAILYPRN PRN Administration Constipation Melatonin 3 mg 08/03/19 01:43 08/03/19 02:24 Melatonin PO 3 mg HS PRN Administration Insomnia Metformin HCl 1,000 mg 08/03/19 17:00 08/06/19 08:41 Glucophage PO 1,000 mg BID-WM [facility] Administration Mometasone Furoate/Formoterol Fumar 2 puff 08/03/19 06:30 08/06/19 07:04 Dulera 200 Mcg/5 Mcg Inhaler INH 2 puff BID-RT [facility] Administration Montelukast Sodium 10 mg 08/03/19 21:00 08/05/19 20:17 Singulair PO 10 mg HS [facility] Administration Ondansetron HCl 4 mg 08/02/19 20:54 08/03/19 18:10 Zofran IVP 4 mg Q6H PRN Administration Nausea/Vomiting Potassium Chloride 10 meq 08/04/19 09:00 08/06/19 08:42 Klor-Con 10 PO 10 meq DAILY [facility] Administration Prednisone 40 mg 08/06/19 08:00 08/06/19 08:41 Prednisone PO 40 mg QAM-WM [facility] Administration Sodium Chloride 10 ml 08/03/19 21:00 08/06/19 08:43 Flush - Normal Saline IVF Not Given Q12HR [facility] - Exam General Appearance: awake alert General - other findings: obese Eye: anicteric sclera ENT: normocephalic atraumatic, moist mucosa Neck: supple, symmetric, no JVD Heart: RRR Respiratory: normal chest expansion, no tachypnea Respiratory - other findings: Fair air entry with scattered transmitted sound and some wheezes/rhonchi Gastrointestinal: soft, non-tender, non-distended, normal bowel sounds Gastrointestinal - other findings: obese Extremities: no cyanosis, no clubbing, no edema Neurological: cranial nerve grossly intact, no focal deficits Psychiatric: normal affect, A&O x 3 Hosp A/P (1) Asthmatic bronchitis Code(s): J45.909 - UNSPECIFIED ASTHMA, UNCOMPLICATED Status: Acute (2) Sepsis Code(s): A41.9 - SEPSIS, UNSPECIFIED ORGANISM Status: Acute (3) Acute respiratory failure with hypoxia Code(s): J96.01 - ACUTE RESPIRATORY FAILURE WITH HYPOXIA Status: Acute (4) Iron deficiency anemia Code(s): D50.9 - IRON DEFICIENCY ANEMIA, UNSPECIFIED Status: Acute (5) HLD (hyperlipidemia) Code(s): E78.5 - HYPERLIPIDEMIA, UNSPECIFIED Status: Acute (6) Chest discomfort Code(s): R07.89 - OTHER CHEST PAIN Status: Acute (7) NSTEMI (non-ST elevated myocardial infarction) Code(s): I21.4 - NON-ST ELEVATION (NSTEMI) MYOCARDIAL INFARCTION Status: Acute (8) Cannabis abuse Code(s): F12.10 - CANNABIS ABUSE, UNCOMPLICATED Status: Chronic (9) HTN (hypertension) Code(s): I10 - ESSENTIAL (PRIMARY) HYPERTENSION Status: Chronic Qualifiers: Hypertension type: essential hypertension Qualified Code(s): I10 - Essential (primary) hypertension (10) Hypokalemia Code(s): E87.6 - HYPOKALEMIA Status: Acute - Plan DC IV fluid. Increase amlodipine and losartan to 10 and 100 respectively to get better BP control. Start IV supplementation Replete serum potassium and get magnesium level. Increase levaquin to 750 mg daily Dc ketorolac. Repeat Renal panel in the am.
[2019-08-06] MEDS ORDERED: Amlodipine 5 MG TAB PO SCH (11:45)
[2019-08-06] MEDS ORDERED: Losartan 25 MG TAB PO SCH (11:45)
[2019-08-06] MEDS: Insulin Regular 300 UNITS/3 ML VIAL SC PRN ×2 (12:15→16:17)
[2019-08-06] MEDS: Potassium Chloride 20 MEQ TAB PO SCH ×2 (12:20→16:20)
[2019-08-06] MEDS: Iron, Sodium Ferric Gluconate 250 MG in Sodium Chloride 0.9% 100 ML IVPB SCH (12:21)
[2019-08-06] MEDS: Atorvastatin Calcium 10 MG TAB PO SCH (20:29)
[2019-08-06] MEDS: Montelukast Sodium 10 mg Tablet PO SCH (20:29)
[2019-08-06] MEDS: hydrOXYzine 25 MG TAB PO SCH (20:29)
[2019-08-06] MEDS: hydrALAZINE 20 MG/ML VIAL SLOW IVP PRN (20:30)
[2019-08-06] MEDS: Acetylcysteine 20% 200 MG/ML 30 ML VIAL INH SCH ×2 (20:30→23:56)
[2019-08-06] MEDS: Acetaminophen 500 MG TAB PO PRN (20:31)
[2019-08-07] MEDS: Iron, Sodium Ferric Gluconate 250 MG in Sodium Chloride 0.9% 100 ML IVPB SCH (00:10)
[2019-08-07] MEDS: Ketorolac Tromethamine 30 MG/ML VIAL IVP SCH ×5 (00:11→23:22)
[2019-08-07] MEDS: Insulin Regular 300 UNITS/3 ML VIAL SC PRN ×3 (00:12→17:03)
[2019-08-07 05:15] LABS: Albumin 3.7 g/dL (3.5-5.0); Anion Gap 18 mmol/L (10-20); BUN (Urea Nitrogen) 6 mg/dL (7.0-18.7); BUN/Creatinine Ratio 7.23; Calc. Creatinine Clearance 182 mL/min (70-130); Calcium 9.3 mg/dL (7.8-10.44); Carbon Dioxide 23 mmol/L (22-29); Chloride 96 mmol/L (98-107); Estimated GFR-MDRD 90; Glucose 128 mg/dL (70-105); Potassium 3.3 mmol/L (3.5-5.1); Sodium 134 mmol/L (136-145)
[2019-08-07] MEDS: hydrALAZINE 20 MG/ML VIAL SLOW IVP PRN (05:43)
[2019-08-07] MEDS: Acetaminophen 500 MG TAB PO PRN (05:44)
[2019-08-07] MEDS: Mometasone/Formoterol 120 PUFF INHALER INH SCH ×2 (06:36→18:50)
[2019-08-07] MEDS: Acetylcysteine 20% 200 MG/ML 30 ML VIAL INH SCH (06:37)
[2019-08-07] MEDS ORDERED: Nitroglycerin 0.4 MG TAB (25 Tab Bottle) ONE (07:27)
[2019-08-07] MEDS ORDERED: Morphine 2 MG/ML SYRINGE ONE (07:29)
[2019-08-07] MEDS ORDERED: Potassium Chloride 20 MEQ TAB PO SCH (07:30)
[2019-08-07] MEDS ORDERED: Nitroglycerin 0.4 MG TAB (25 Tab Bottle) SL PRN (07:47)
--- NOTE | 2019-08-07 07:52 | RAD ---
PORTABLE CHEST: DATE: 08/07/2019. PROVIDED CLINICAL HISTORY: Code Green. FINDINGS: Comparison 08/02/2019. External defibrillator device overlies the chest, limiting evaluation. Evalu ation is also limited by patient body habitus. Multiple metallic densities again overlie the chest b ilaterally. Cardiac and mediastinal silhouette has not definitely changed in appearance. Left mid l tyshawn zone and lower lung zone airspace disease cannot be excluded. There is no evidence for pneumotho rax. IMPRESSION: Limited study. Followup PA and lateral views of the chest are recommended. POS: OFF
--- NOTE | 2019-08-07 07:56 | PDOC.HOSPP ---
- Subjective Encounter Date: 08/07/19 Encounter Time: 07:51 Subjective: Admitted for worsening SOB and wheezing. Ad lui was called this morning for SVT associated with ill feeling and Chest discomfort. Spontaneously went back to sinus tachycardia with ectopics. Also had 2 episodes last night for 20 and 4.25 minutes. Still having chest discomfort. Still having dry cough. No fever. Recieved SL nitro with acute drop in BP hence started on NS bolus. Transfered to IMCU for close monitoring. - Objective Vital Signs & Weight: Vital Signs (12 hours) Temp Pulse Resp BP BP BP Pulse Ox 08/07/19 06:34 88 16 92 L 08/07/19 05:43 105 H 165/91 H 08/07/19 04:00 101.4 F H 105 H 20 165/91 H 92 L 08/07/19 02:30 76 16 08/06/19 23:25 101 H 150/95 H 08/06/19 22:15 72 16 08/06/19 20:30 100 179/118 H 08/06/19 20:20 99 F 100 20 179/118 H 95 Weight Weight 300 lb I&O: 08/06/19 08/07/19 08/08/19 06:59 06:59 06:59 Intake Total 1343 1830 Output Total 200 Balance 1143 1830 Result Diagrams: 08/06/19 09:22 08/07/19 04:43 Additional Labs: Accuchecks 08/07/19 08/07/19 08/06/19 07:22 05:21 20:32 POC Glucose 159 H 124 H 231 H 08/06/19 08/06/19 16:13 12:15 POC Glucose 316 H 223 H Hospitalist ROS - Medication Medications: Active Medications Generic Name Dose Route Start Last Admin Trade Name Freq PRN Reason Stop Dose Admin Acetaminophen 1,000 mg 08/02/19 20:54 08/07/19 05:44 Tylenol PO 1,000 mg Q6H PRN Administration Mild Pain (1-3) Albuterol/Ipratropium 3 ml 08/02/19 22:30 08/07/19 06:34 Duoneb NEB 3 ml [id number] DIONE Administration Aspirin 325 mg 08/03/19 09:00 08/06/19 08:41 Ecotrin PO 325 mg DAILY DIONE Administration Atorvastatin Calcium 10 mg 08/03/19 21:00 08/06/19 20:29 Lipitor PO 10 mg HS DIONE Administration Benzonatate 200 mg 08/03/19 09:37 08/06/19 06:17 Tessalon PO 200 mg TIDPRN PRN Administration Cough Famotidine 20 mg 08/02/19 21:00 08/06/19 20:28 Pepcid PO 20 mg BID DIONE Administration Guaifenesin/Dextromethorphan 1 tab 08/04/19 09:00 08/06/19 20:29 Mucinex Dm PO 1 tab Q12HR DIONE Administration Hydralazine HCl 10 mg 08/02/19 20:54 08/07/19 05:43 Apresoline SLOW IVP 10 mg Q4H PRN Administration SBP > 180 and HR < 70 Hydroxyzine HCl 25 mg 08/03/19 21:00 08/06/19 20:29 Atarax PO 25 mg HS DIONE Administration Insulin Human Regular 0 units 08/05/19 04:48 08/06/19 16:17 Humulin R SC 5 unit .MILD SLIDING SCALE PRN Administration Mild Correctional Scale Insulin Human Regular 0 units 08/05/19 04:48 08/07/19 00:12 Humulin R SC 2 unit .BEDTIME SLIDING SC PRN Administration Bedtime Correctional Scale Ketorolac Tromethamine 30 mg 08/06/19 06:00 08/07/19 05:43 Toradol IVP 08/09/19 12:01 30 mg Q6HR DIONE Administration Levofloxacin 750 mg 08/07/19 06:00 08/07/19 05:43 Levaquin PO 750 mg 0600 DIONE Administration Magnesium Hydroxide 30 ml 08/05/19 12:16 08/05/19 14:45 Milk Of Magnesium PO 30 ml DAILYPRN PRN Administration Constipation Melatonin 3 mg 08/03/19 01:43 08/03/19 02:24 Melatonin PO 3 mg HS PRN Administration Insomnia Metformin HCl 1,000 mg 08/03/19 17:00 08/06/19 16:17 Glucophage PO 1,000 mg BID-WM DIONE Administration Mometasone Furoate/Formoterol Fumar 2 puff 08/03/19 06:30 08/07/19 06:36 Dulera 200 Mcg/5 Mcg Inhaler INH 2 puff BID-RT DIONE Administration Montelukast Sodium 10 mg 08/03/19 21:00 08/06/19 20:29 Singulair PO 10 mg HS DIONE Administration Ondansetron HCl 4 mg 08/02/19 20:54 08/03/19 18:10 Zofran IVP 4 mg Q6H PRN Administration Nausea/Vomiting Potassium Chloride 10 meq 08/04/19 09:00 08/06/19 08:42 Klor-Con 10 PO 10 meq DAILY DIONE Administration Prednisone 40 mg 08/06/19 08:00 08/06/19 08:41 Prednisone PO 40 mg QAM-WM DIONE Administration Sodium Chloride 10 ml 08/03/19 21:00 08/06/19 20:33 Flush - Normal Saline IVF 10 ml Q12HR DIONE Administration - Exam General Appearance: awake alert General - other findings: acutely ill looking and in distress Eye: anicteric sclera ENT: normocephalic atraumatic, dry oral mucosa Neck: supple, no JVD Heart: RRR Heart - other findings: tachycardic Respiratory: normal chest expansion, no tachypnea Respiratory - other findings: fair air entry with some transmitted sound. No obviuos rhonchi appreciated. Gastrointestinal: soft, non-tender, non-distended, normal bowel sounds Extremities: no cyanosis, no edema Neurological: cranial nerve grossly intact, no focal deficits Psychiatric: normal affect, A&O x 3 Hosp A/P (1) PSVT (paroxysmal supraventricular tachycardia) Code(s): I47.1 - SUPRAVENTRICULAR TACHYCARDIA Status: Acute (2) Asthmatic bronchitis Code(s): J45.909 - UNSPECIFIED ASTHMA, UNCOMPLICATED Status: Acute (3) Sepsis Code(s): A41.9 - SEPSIS, UNSPECIFIED ORGANISM Status: Acute (4) Acute respiratory failure with hypoxia Code(s): J96.01 - ACUTE RESPIRATORY FAILURE WITH HYPOXIA Status: Acute (5) Iron deficiency anemia Code(s): D50.9 - IRON DEFICIENCY ANEMIA, UNSPECIFIED Status: Acute (6) HLD (hyperlipidemia) Code(s): E78.5 - HYPERLIPIDEMIA, UNSPECIFIED Status: Acute (7) Chest discomfort Code(s): R07.89 - OTHER CHEST PAIN Status: Acute (8) NSTEMI (non-ST elevated myocardial infarction) Code(s): I21.4 - NON-ST ELEVATION (NSTEMI) MYOCARDIAL INFARCTION Status: Acute (9) Cannabis abuse Code(s): F12.10 - CANNABIS ABUSE, UNCOMPLICATED Status: Chronic (10) HTN (hypertension) Code(s): I10 - ESSENTIAL (PRIMARY) HYPERTENSION Status: Chronic Qualifiers: Hypertension type: essential hypertension Qualified Code(s): I10 - Essential (primary) hypertension (11) Hypokalemia Code(s): E87.6 - HYPOKALEMIA Status: Acute - Plan Replete serum potassium with 80 meq of KCL. Transfer to IMCU for close monitoring. Hold antihypertensives. NS 1 liter bolus. Continue antibiotics and bronchodilators Give ASA, SL and morphine as tolerated. Get troponin and BNP. Update provided to spouse. Further treatment to follow depending of lab results and hospital course.
[2019-08-07] MEDS ORDERED: Morphine 2 MG/ML SYRINGE SLOW IVP SCH (08:00)
[2019-08-07] MEDS: Potassium Chloride 20 MEQ in Premix Bag 1 BAG IVPB SCH ×2 (08:10→11:12)
--- NOTE | 2019-08-07 08:52 | PDOC.CPN ---
- Subjective Date: 08/07/19 Time: 08:54 Interval history: The pt seen and examined. No overnight events. No cardiac complaints. - Objective Allergies/Adverse Reactions: Allergies Allergy/AdvReac Type Severity Reaction Status Date / Time No Known Allergies Allergy Verified 08/02/19 20:57 Visit Medications: Current Medications Acetaminophen (Tylenol) 1,000 mg PO Q6H PRN PRN Reason: Mild Pain (1-3) Last Admin: 08/07/19 05:44 Dose: 1,000 mg Albuterol/Ipratropium (Duoneb) 3 ml NEB [id number] [facility] Last Admin: 08/07/19 06:34 Dose: 3 ml Amlodipine Besylate (Norvasc) 10 mg PO DAILY DIONE Aspirin (Ecotrin) 325 mg PO DAILY [facility] Last Admin: 08/06/19 08:41 Dose: 325 mg Atorvastatin Calcium (Lipitor) 10 mg PO HS [facility] Last Admin: 08/06/19 20:29 Dose: 10 mg Benzonatate (Tessalon) 200 mg PO TIDPRN PRN PRN Reason: Cough Last Admin: 08/06/19 06:17 Dose: 200 mg Dextrose/Water (Dextrose 50%) 25 gm SLOW IVP PRN PRN PRN Reason: Hypoglycemia Famotidine (Pepcid) 20 mg PO BID [facility] Last Admin: 08/06/19 20:28 Dose: 20 mg Glucagon (Glucagon) 1 mg IM PRN PRN PRN Reason: Hypoglycemia Guaifenesin/Dextromethorphan (Mucinex Dm) 1 tab PO Q12HR [facility] Last Admin: 08/06/19 20:29 Dose: 1 tab Hydralazine HCl (Apresoline) 10 mg SLOW IVP Q4H PRN PRN Reason: SBP > 180 and HR < 70 Last Admin: 08/07/19 05:43 Dose: 10 mg Hydroxyzine HCl (Atarax) 25 mg PO HS [facility] Last Admin: 08/06/19 20:29 Dose: 25 mg Dextrose/Water (D5w) 1,000 mls @ 0 mls/hr IV .Q0M PRN PRN Reason: Hypoglycemia Potassium Chloride 20 meq/ (Device) 100 mls @ 50 mls/hr IVPB Q2H [facility] Stop: 08/07/19 11:59 Last Admin: 08/07/19 08:10 Dose: 100 mls Insulin Human Regular (Humulin R) 0 units SC .MILD SLIDING SCALE PRN PRN Reason: Mild Correctional Scale Last Admin: 08/06/19 16:17 Dose: 5 unit Insulin Human Regular (Humulin R) 0 units SC .BEDTIME SLIDING SC PRN PRN Reason: Bedtime Correctional Scale Last Admin: 08/07/19 00:12 Dose: 2 unit Ketorolac Tromethamine (Toradol) 30 mg IVP Q6HR [facility] Stop: 08/09/19 12:01 Last Admin: 08/07/19 05:43 Dose: 30 mg Levofloxacin (Levaquin) 750 mg PO 0600 [facility] Last Admin: 08/07/19 05:43 Dose: 750 mg Losartan Potassium (Cozaar) 100 mg PO DAILY [facility] Magnesium Hydroxide (Milk Of Magnesium) 30 ml PO DAILYPRN PRN PRN Reason: Constipation Last Admin: 08/05/19 14:45 Dose: 30 ml Melatonin (Melatonin) 3 mg PO HS PRN PRN Reason: Insomnia Last Admin: 08/03/19 02:24 Dose: 3 mg Metformin HCl (Glucophage) 1,000 mg PO BID-WM [facility] Last Admin: 08/06/19 16:17 Dose: 1,000 mg Mometasone Furoate/Formoterol Fumar (Dulera 200 Mcg/5 Mcg Inhaler) 2 puff INH BID-RT [facility] Last Admin: 08/07/19 06:36 Dose: 2 puff Montelukast Sodium (Singulair) 10 mg PO HS [facility] Last Admin: 08/06/19 20:29 Dose: 10 mg Morphine Sulfate (Morphine) 2 mg SLOW IVP NOW [facility] Stop: 08/07/19 10:00 Nitroglycerin (Nitrostat) 0.4 mg SL Q5MIN PRN PRN Reason: Chest Pain Ondansetron HCl (Zofran Odt) 4 mg PO Q6H PRN PRN Reason: Nausea/Vomiting Ondansetron HCl (Zofran) 4 mg IVP Q6H PRN PRN Reason: Nausea/Vomiting Last Admin: 08/03/19 18:10 Dose: 4 mg Potassium Chloride (Klor-Con 10) 10 meq PO DAILY [facility] Last Admin: 08/06/19 08:42 Dose: 10 meq Potassium Chloride (K-Dur) 40 meq PO NOW [facility] Stop: 08/07/19 09:00 Prednisone (Prednisone) 40 mg PO QAM-WM [facility] Last Admin: 08/06/19 08:41 Dose: 40 mg Sodium Chloride (Flush - Normal Saline) 10 ml IVF Q12HR [facility] Last Admin: 08/06/19 20:33 Dose: 10 ml Sodium Chloride (Flush - Normal Saline) 10 ml IVF PRN PRN PRN Reason: Saline Flush Vital Signs & Weight: Vital Signs Temp Pulse Resp BP BP BP Pulse Ox 08/07/19 07:11 99.1 F 186 H 24 H 120/68 92 L 08/07/19 06:34 88 16 92 L 08/07/19 05:43 105 H 165/91 H 08/07/19 04:00 101.4 F H 105 H 20 165/91 H 92 L 08/07/19 02:30 76 16 08/06/19 23:25 101 H 150/95 H 08/06/19 22:15 72 16 Weight 300 lb - Physical Exam General: alert & oriented x3 Neck: supple neck Cardiac: regular rate and rhythm, S1/S2 Lungs: wheezes Skin: clear - Labs Result Diagrams: 08/06/19 09:22 08/07/19 04:43 Troponin/CKMB CK-MB (CK-2) 2.6 ng/mL (0-6.6) 08/03/19 02:31 Troponin I 0.050 ng/mL (< 0.028) H 08/07/19 07:34 - Telemetry Sinus rhythms and dysrhythmias: other (SR/ST with PVCs) - Assessment/Plan Assessment/Plan: 1. S/p NSVT - remains in SR/ST; 2. Type II DC - Stress test showed no reversible ischemia; 3. Sepsis - on ABX IV; managed by PCP 4. HTN - stable 5. DM type 2 - managed by PCP 6. Asthmatic bronchitis - on breathing tx 7. Cannabis abuse MAR reviewed * Echo on 08/05/2019 with EF 50-55%, mild MR, TR, and MT pt. seen and eval. by me. I agree with the A/P by the STEEL HEATER but the tele tracings seem to indicate Afib. with RVR. Will ask EP to see. With her COPD/asthma betablockers will prob. not be possible. Ca blockers may be reasonable. Will see if EP agrees. Chest : scattered wheeze. RRR at this time.
[2019-08-07] MEDS ORDERED: Amlodipine 10 MG TAB PO SCH (09:00)
[2019-08-07] MEDS: Aspirin 325 mg Enteric Coated Tablet PO SCH (09:34)
[2019-08-07] MEDS: predniSONE 20 MG TAB PO SCH (09:34)
[2019-08-07] MEDS: metFORMIN 500 MG TAB PO SCH ×2 (09:34→17:01)
[2019-08-07] MEDS: Potassium Chloride 10 MEQ TAB PO SCH (10:37)
[2019-08-07] MEDS: Famotidine 20 MG TAB PO SCH ×2 (10:40→22:16)
[2019-08-07] MEDS: Losartan 25 MG TAB PO SCH (11:20)
[2019-08-07] MEDS: guaiFENesin/DM ER PO SCH ×2 (11:42→22:18)
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
[2019-08-07] MEDS: Atorvastatin Calcium 10 MG TAB PO SCH (22:16)
[2019-08-07] MEDS: Montelukast Sodium 10 mg Tablet PO SCH ×2 (22:17→22:18)
[2019-08-07] MEDS: hydrOXYzine 25 MG TAB PO SCH (22:18)
--- NOTE | 2019-08-07 23:26 | CON ---
DATE OF CONSULTATION: 08/07/2019 HISTORY OF PRESENT ILLNESS: I am seeing Ms. Prasad at our [facility] ICU as Electrophysiology human resources consultant. Her problems are; 1. New paroxysmal atrial fibrillation/flutter with rapid rates. 2. Frequent PVCs. 3. Acute bronchitis/asthma exacerbation causing current admission. 4. Atypical chest pains with;. a. Stress test 08/04/2019 shows no convincing evidence of reversible ischemia. LVEF 49%. b. 2D echo from 07/26/2019 reveals LVEF 50% to 55%, mild MR, TR, normal left atrial size. 5. Morbid obesity. 6. Hypertension. 7. Diabetes. ALLERGIES: NONE NOTED. MEDICATIONS: At home included; 1. Atarax. 2. Cozaar. 3. Omeprazole. 4. Potassium chloride. 5. Montelukast. 6. Benzonatate. 7. Ibuprofen.. 8. Metformin. 9. Pravastatin. 10. Lisinopril. 11. Albuterol. SUBJECTIVE: Ms. Prasad was admitted on August 02 with a couple of days duration of generally feeling malaise, more and more dyspneic, coughing with symptoms consistent with a viral infection. She has been evaluated by Dr. Chavez for atypical chest pain. Negative stress test was noted. Her respiratory status gradually improved with instituted nebulizer and steroid regimen, but this morning, she developed rapid palpitations, which prompted her transfer to the ICU. During the time of her episode, she felt rapid palpitations, dyspnea, feeling hot. She explained she never experienced this symptom before. She did not pass out, was mildly lightheaded. She has no PND, orthopnea, or lower extremity edema. No fever, chills, cough at this time. Denies more angina, fever, chills, or cough. Rest of 12-point review of systems otherwise unremarkable. PAST MEDICAL HISTORY: As above. No prior history of heart disease or heart attacks. SOCIAL HISTORY: The patient denies smoking, EtOH, or drug abuse. FAMILY HISTORY: Not contributory. OBJECTIVE DATA: VITAL SIGNS: Blood pressure is 128/84, heart rate 94, respirations 21, temperature is 99 degrees Fahrenheit. GENERAL: Alert and oriented woman, in no apparent distress. NECK: Supple. Jugular veins not distended. CHEST: Coarse without crackles. HEART: Sounds are regular to rate and rhythm. No murmur or gallop. ABDOMEN: Benign. Bowel sounds positive. EXTREMITIES: Lower extremity without edema, clubbing, or cyanosis. Pulses are adequate. NEUROLOGIC: The patient is nonfocal. MUSCULOSKELETAL: No joint swelling or deformities. SKIN: Without rash. DATABASE: EKG is reviewed. Initial EKG has revealed sinus rhythm, rate of 104 beats per minute, narrow QRS. Nonspecific ST-T changes only. The telemetry strips revealed sinus rhythm up until the morning of 08/07 when she developed a very rapidly conducted somewhat irregular atrial fibrillation, PAT runs with up to 240 beats per minute. Eventually, the episodes resolved. Subsequent telemetry strips revealed frequent PVCs, on occasion bigeminy pattern. LABORATORY DATA: White count is 10.1, hemoglobin 12.1, platelet count is 328. Sodium 134, potassium 3.3, BUN is 6, creatinine is 0.83. ASSESSMENT AND PLAN: Ms. Prasad is a pleasant 48-year-old woman with a history of COPD, asthma, who presented with bronchitis, COPD exacerbation and was improving until this morning when she developed a fever with RVR. Also, frequent PVCs, but they are not that symptomatic. I suggest she can tell this is her first episode and currently back in sinus rhythm. My plan would be at this point; 1. I think she could benefit from further AV jenny blocking agents. Diltiazem would be obvious choice. Hence history of asthma, would avoid beta blockers as a first line therapy. Additional digoxin could be used if necessary. Diltiazem could be titrated up, for now, we will start 180 mg a day. Norvasc could be stopped instead. 2. Her CHADS Vasc score is 1 with possible CHF and may be 2 with gender, but at this point, we will hold off oral anticoagulants, hence the relatively short duration of the episode. If further episodes occur, consideration adding Multaq versus flecainide to the regimen could be considered. Ultimately, ablation procedure also could be an option with the episodes frequently recur with this rapid rate. We will follow up with you. Thank you again for allowing me to participate in the care of this patient. Job ID: [id number]
[2019-08-08] MEDS: Ketorolac Tromethamine 30 MG/ML VIAL IVP SCH ×3 (05:12→17:55)
[2019-08-08 05:47] LABS: Anion Gap 16 mmol/L (10-20); BUN (Urea Nitrogen) 8 mg/dL (7.0-18.7); Calc. Creatinine Clearance 189 mL/min (70-130); Calcium 9.4 mg/dL (7.8-10.44); Carbon Dioxide 25 mmol/L (22-29); Chloride 100 mmol/L (98-107); Estimated GFR-MDRD Greater than 90; Glucose 120 mg/dL (70-105); Potassium 3.9 mmol/L (3.5-5.1); Sodium 137 mmol/L (136-145)
[2019-08-08] MEDS: Mometasone/Formoterol 120 PUFF INHALER INH SCH ×2 (07:31→18:46)
[2019-08-08] MEDS: Losartan 25 MG TAB PO SCH (07:51)
[2019-08-08] MEDS: Potassium Chloride 10 MEQ TAB PO SCH (07:51)
[2019-08-08] MEDS: Aspirin 325 mg Enteric Coated Tablet PO SCH (07:51)
[2019-08-08] MEDS: Famotidine 20 MG TAB PO SCH ×2 (07:52→21:20)
[2019-08-08] MEDS: metFORMIN 500 MG TAB PO SCH ×2 (07:52→16:49)
[2019-08-08] MEDS: predniSONE 20 MG TAB PO SCH (07:52)
[2019-08-08] MEDS: Insulin Regular 300 UNITS/3 ML VIAL SC PRN ×2 (12:15→16:53)
[2019-08-08] MEDS: guaiFENesin/DM ER PO SCH ×2 (14:22→21:21)
--- NOTE | 2019-08-08 14:45 | PDOC.CPN ---
- Subjective Date: 08/08/19 Time: 08:30 Interval history: The pt seen and examined. No overnight events. No cardiac complaints. - Objective Allergies/Adverse Reactions: Allergies Allergy/AdvReac Type Severity Reaction Status Date / Time No Known Allergies Allergy Verified 08/02/19 20:57 Visit Medications: Current Medications Acetaminophen (Tylenol) 1,000 mg PO Q6H PRN PRN Reason: Mild Pain (1-3) Last Admin: 08/07/19 05:44 Dose: 1,000 mg Albuterol/Ipratropium (Duoneb) 3 ml NEB [id number] [facility] Last Admin: 08/08/19 14:16 Dose: 3 ml Aspirin (Ecotrin) 325 mg PO DAILY [facility] Last Admin: 08/08/19 07:51 Dose: 325 mg Atorvastatin Calcium (Lipitor) 10 mg PO HS [facility] Last Admin: 08/07/19 22:16 Dose: 10 mg Benzonatate (Tessalon) 200 mg PO TIDPRN PRN PRN Reason: Cough Last Admin: 08/06/19 06:17 Dose: 200 mg Dextrose/Water (Dextrose 50%) 25 gm SLOW IVP PRN PRN PRN Reason: Hypoglycemia Diltiazem HCl (Cardizem Cd) 240 mg PO DAILY DIONE Famotidine (Pepcid) 20 mg PO BID [facility] Last Admin: 08/08/19 07:52 Dose: 20 mg Glucagon (Glucagon) 1 mg IM PRN PRN PRN Reason: Hypoglycemia Guaifenesin/Dextromethorphan (Mucinex Dm) 1 tab PO Q12HR [facility] Last Admin: 08/08/19 14:22 Dose: 1 tab Hydralazine HCl (Apresoline) 10 mg SLOW IVP Q4H PRN PRN Reason: SBP > 180 and HR < 70 Last Admin: 08/07/19 05:43 Dose: 10 mg Hydroxyzine HCl (Atarax) 25 mg PO HS [facility] Last Admin: 08/07/19 22:18 Dose: 25 mg Dextrose/Water (D5w) 1,000 mls @ 0 mls/hr IV .Q0M PRN PRN Reason: Hypoglycemia Insulin Human Regular (Humulin R) 0 units SC .MILD SLIDING SCALE PRN PRN Reason: Mild Correctional Scale Last Admin: 08/08/19 12:15 Dose: 3 unit Insulin Human Regular (Humulin R) 0 units SC .BEDTIME SLIDING SC PRN PRN Reason: Bedtime Correctional Scale Last Admin: 08/07/19 00:12 Dose: 2 unit Ketorolac Tromethamine (Toradol) 30 mg IVP Q6HR [facility] Stop: 08/09/19 12:01 Last Admin: 08/08/19 12:14 Dose: 30 mg Levofloxacin (Levaquin) 750 mg PO 0600 [facility] Last Admin: 08/08/19 05:13 Dose: 750 mg Losartan Potassium (Cozaar) 100 mg PO DAILY [facility] Last Admin: 08/08/19 07:51 Dose: 100 mg Magnesium Hydroxide (Milk Of Magnesium) 30 ml PO DAILYPRN PRN PRN Reason: Constipation Last Admin: 08/05/19 14:45 Dose: 30 ml Melatonin (Melatonin) 3 mg PO HS PRN PRN Reason: Insomnia Last Admin: 08/03/19 02:24 Dose: 3 mg Metformin HCl (Glucophage) 1,000 mg PO BID-WM [facility] Last Admin: 08/08/19 07:52 Dose: 1,000 mg Mometasone Furoate/Formoterol Fumar (Dulera 200 Mcg/5 Mcg Inhaler) 2 puff INH BID-RT [facility] Last Admin: 08/08/19 07:31 Dose: 2 puff Montelukast Sodium (Singulair) 10 mg PO HS [facility] Last Admin: 08/07/19 22:18 Dose: 10 mg Nitroglycerin (Nitrostat) 0.4 mg SL Q5MIN PRN PRN Reason: Chest Pain Ondansetron HCl (Zofran Odt) 4 mg PO Q6H PRN PRN Reason: Nausea/Vomiting Ondansetron HCl (Zofran) 4 mg IVP Q6H PRN PRN Reason: Nausea/Vomiting Last Admin: 08/03/19 18:10 Dose: 4 mg Potassium Chloride (Klor-Con 10) 10 meq PO DAILY [facility] Last Admin: 08/08/19 07:51 Dose: 10 meq Prednisone (Prednisone) 40 mg PO QAM-WM [facility] Last Admin: 08/08/19 07:52 Dose: 40 mg Sodium Chloride (Flush - Normal Saline) 10 ml IVF Q12HR [facility] Last Admin: 08/08/19 07:53 Dose: 10 ml Sodium Chloride (Flush - Normal Saline) 10 ml IVF PRN PRN PRN Reason: Saline Flush Last Admin: 08/08/19 12:14 Dose: 10 ml Vital Signs & Weight: Vital Signs Temp Pulse Resp Pulse Ox 08/08/19 14:16 97 18 96 08/08/19 11:00 100.8 F H 08/08/19 10:53 105 H 20 95 08/08/19 07:38 98 08/08/19 07:32 99 08/08/19 07:29 106 H 18 99 08/08/19 07:00 99.6 F 08/08/19 04:00 100.0 F H 08/08/19 03:25 98 Weight 290 lb 12.635 oz - Physical Exam General: alert & oriented x3 HEENT: mucus membranes moist Neck: supple neck Cardiac: regular rate and rhythm, S1/S2 Lungs: decreased breath sounds, wheezes Neuro: cranial nerve 2-12 intact Abdomen: unremarkable Skin: clear Musculoskeletal: normal range of motion - Labs Result Diagrams: 08/06/19 09:22 08/08/19 04:42 Troponin/CKMB CK-MB (CK-2) 2.6 ng/mL (0-6.6) 08/03/19 02:31 Troponin I 0.050 ng/mL (< 0.028) H 08/07/19 07:34 - Telemetry Sinus rhythms and dysrhythmias: other (SR/ST) - Assessment/Plan Assessment/Plan: 1. S/p Afib with RVR - remains in SR/ST;On Diltiazem 180mg qd;Not on BBlocker due to hx of COPD/Asthma; Only ASA since [id number] score 1. Appreciate EP input! 2. Type II [place] - Stress test showed no reversible ischemia; 3. Sepsis - on ABX IV; managed by PCP 4. HTN - stable 5. DM type 2 - managed by PCP 6. Asthmatic bronchitis - on breathing tx 7. Cannabis abuse 8. COPD/asthma- managed by military pay technician 9. Obese - weight management education given to the pt MAR reviewed * Echo on 08/05/2019 with EF 50-55%, mild MR, TR, and [place] Pt. seen and eval. by me. I agree with the A/P by the GAME DESIGN INSTRUCTOR. She has no cardiac complaints today. Chest : left upper rhonchi/wheeze. RRR with frequent ectopy. PVC's on the monitor. Continue diltiazem. gjmays
--- NOTE | 2019-08-08 14:47 | PDOC.HOSPP ---
- Subjective Encounter Date: 08/08/19 Encounter Time: 14:44 Subjective: 48 y.o obese female with asthma admitted for worsening SOB and wheezing. Had paroxysmal atrial fib with RVR associated with chest discomfort and SOB hence code green called and she was subsequently transfered to [facility]. Spontaneously back to sinus. Feeling better. - Objective Vital Signs & Weight: Vital Signs (12 hours) Temp Pulse Resp Pulse Ox 08/08/19 14:16 97 18 96 08/08/19 11:00 100.8 F H 08/08/19 10:53 105 H 20 95 08/08/19 07:38 98 08/08/19 07:32 99 08/08/19 07:29 106 H 18 99 08/08/19 07:00 99.6 F 08/08/19 04:00 100.0 F H 08/08/19 03:25 98 Weight Weight 290 lb 12.635 oz Most Recent Monitor Data Heart Rate from ECG 98 NIBP 133/97 NIBP BP-Mean 109 Respiration from ECG 22 SpO2 95 I&O: 08/07/19 08/08/19 08/09/19 06:59 06:59 06:59 Intake Total 1830 1581 510 Output Total 1750 150 Balance 1830 -169 360 Result Diagrams: 08/09/19 05:17 08/08/19 04:42 Additional Labs: Accuchecks 08/08/19 08/07/19 08/07/19 12:13 21:50 17:00 POC Glucose 242 H 199 H 326 H Hospitalist ROS - Medication Medications: Active Medications Generic Name Dose Route Start Last Admin Trade Name Freq PRN Reason Stop Dose Admin Acetaminophen 1,000 mg 08/02/19 20:54 08/07/19 05:44 Tylenol PO 1,000 mg Q6H PRN Administration Mild Pain (1-3) Albuterol/Ipratropium 3 ml 08/02/19 22:30 08/08/19 14:16 Duoneb NEB 3 ml [id number] DIONE Administration Aspirin 325 mg 08/03/19 09:00 08/08/19 07:51 Ecotrin PO 325 mg DAILY DIONE Administration Atorvastatin Calcium 10 mg 08/03/19 21:00 08/07/19 22:16 Lipitor PO 10 mg HS DIONE Administration Benzonatate 200 mg 08/03/19 09:37 08/06/19 06:17 Tessalon PO 200 mg TIDPRN PRN Administration Cough Famotidine 20 mg 08/02/19 21:00 08/08/19 07:52 Pepcid PO 20 mg BID DIONE Administration Guaifenesin/Dextromethorphan 1 tab 08/04/19 09:00 08/08/19 14:22 Mucinex Dm PO 1 tab Q12HR DIONE Administration Hydralazine HCl 10 mg 08/02/19 20:54 08/07/19 05:43 Apresoline SLOW IVP 10 mg Q4H PRN Administration SBP > 180 and HR < 70 Hydroxyzine HCl 25 mg 08/03/19 21:00 08/07/19 22:18 Atarax PO 25 mg HS DIONE Administration Insulin Human Regular 0 units 08/05/19 04:48 08/08/19 12:15 Humulin R SC 3 unit .MILD SLIDING SCALE PRN Administration Mild Correctional Scale Insulin Human Regular 0 units 08/05/19 04:48 08/07/19 00:12 Humulin R SC 2 unit .BEDTIME SLIDING SC PRN Administration Bedtime Correctional Scale Ketorolac Tromethamine 30 mg 08/06/19 06:00 08/08/19 12:14 Toradol IVP 08/09/19 12:01 30 mg Q6HR DIONE Administration Levofloxacin 750 mg 08/07/19 06:00 08/08/19 05:13 Levaquin PO 750 mg 0600 DIONE Administration Losartan Potassium 100 mg 08/07/19 09:00 08/08/19 07:51 Cozaar PO 100 mg DAILY DIONE Administration Magnesium Hydroxide 30 ml 08/05/19 12:16 08/05/19 14:45 Milk Of Magnesium PO 30 ml DAILYPRN PRN Administration Constipation Melatonin 3 mg 08/03/19 01:43 08/03/19 02:24 Melatonin PO 3 mg HS PRN Administration Insomnia Metformin HCl 1,000 mg 08/03/19 17:00 08/08/19 07:52 Glucophage PO 1,000 mg BID-WM DIONE Administration Mometasone Furoate/Formoterol Fumar 2 puff 08/03/19 06:30 08/08/19 07:31 Dulera 200 Mcg/5 Mcg Inhaler INH 2 puff BID-RT DIONE Administration Montelukast Sodium 10 mg 08/03/19 21:00 08/07/19 22:18 Singulair PO 10 mg HS DIONE Administration Ondansetron HCl 4 mg 08/02/19 20:54 08/03/19 18:10 Zofran IVP 4 mg Q6H PRN Administration Nausea/Vomiting Potassium Chloride 10 meq 08/04/19 09:00 08/08/19 07:51 Klor-Con 10 PO 10 meq DAILY DIONE Administration Prednisone 40 mg 08/06/19 08:00 08/08/19 07:52 Prednisone PO 40 mg QAM-WM DIONE Administration Sodium Chloride 10 ml 08/03/19 21:00 08/08/19 07:53 Flush - Normal Saline IVF 10 ml Q12HR DIONE Administration Sodium Chloride 10 ml 08/03/19 09:35 08/08/19 12:14 Flush - Normal Saline IVF 10 ml PRN PRN Administration Saline Flush - Exam General Appearance: awake alert General - other findings: obese Eye: PERRL, anicteric sclera ENT: normocephalic atraumatic Neck: supple, symmetric, no JVD Heart: RRR Respiratory: no wheezes, no ronchi, normal chest expansion Respiratory - other findings: fair air entry with scatttered crackles Gastrointestinal: soft, non-tender, non-distended, normal bowel sounds Extremities: no cyanosis, no edema Neurological: cranial nerve grossly intact, no focal deficits Psychiatric: normal affect, A&O x 3 Hosp A/P (1) PSVT (paroxysmal supraventricular tachycardia) Code(s): I47.1 - SUPRAVENTRICULAR TACHYCARDIA Status: Acute (2) Paroxysmal atrial fibrillation with rapid ventricular response Code(s): I48.0 - PAROXYSMAL ATRIAL FIBRILLATION Status: Acute (3) Asthmatic bronchitis Code(s): J45.909 - UNSPECIFIED ASTHMA, UNCOMPLICATED Status: Acute (4) Sepsis Code(s): A41.9 - SEPSIS, UNSPECIFIED ORGANISM Status: Acute (5) Acute respiratory failure with hypoxia Code(s): J96.01 - ACUTE RESPIRATORY FAILURE WITH HYPOXIA Status: Acute (6) Iron deficiency anemia Code(s): D50.9 - IRON DEFICIENCY ANEMIA, UNSPECIFIED Status: Acute (7) HLD (hyperlipidemia) Code(s): E78.5 - HYPERLIPIDEMIA, UNSPECIFIED Status: Acute (8) Chest discomfort Code(s): R07.89 - OTHER CHEST PAIN Status: Acute (9) NSTEMI (non-ST elevated myocardial infarction) Code(s): I21.4 - NON-ST ELEVATION (NSTEMI) MYOCARDIAL INFARCTION Status: Acute (10) Cannabis abuse Code(s): F12.10 - CANNABIS ABUSE, UNCOMPLICATED Status: Chronic (11) HTN (hypertension) Code(s): I10 - ESSENTIAL (PRIMARY) HYPERTENSION Status: Chronic Qualifiers: Hypertension type: essential hypertension Qualified Code(s): I10 - Essential (primary) hypertension (12) Hypokalemia Code(s): E87.6 - HYPOKALEMIA Status: Acute - Plan increase cardizem to 240 daily to get adequate HR control. Continue antibiotics and bronchodilators Transfer back to [facility] Get repeat CXR in the am.
--- NOTE | 2019-08-08 16:22 | PDOC.CPN ---
- Subjective Date: 08/08/19 Time: 11:00 Interval history: EP PROGRESS NOTE: 08/08/19 Followup for AFib. HR remains 90-110. Feels fine. no further heart racing, palpitations, chest pain, or stroke like symptoms. - Review of Systems Respiratory: denies: cough, congestion, shortness of breath, exercise intolerance Cardiovascular: denies: chest pain, palpitation, edema, paroxysmal nocturnal dyspnea, orthopnea Neurological: denies: syncope, weakness - Objective Allergies/Adverse Reactions: Allergies Allergy/AdvReac Type Severity Reaction Status Date / Time No Known Allergies Allergy Verified 08/02/19 20:57 Visit Medications: Current Medications Acetaminophen (Tylenol) 1,000 mg PO Q6H PRN PRN Reason: Mild Pain (1-3) Last Admin: 08/07/19 05:44 Dose: 1,000 mg Albuterol/Ipratropium (Duoneb) 3 ml NEB [id number] [facility] Last Admin: 08/08/19 14:16 Dose: 3 ml Aspirin (Ecotrin) 325 mg PO DAILY [facility] Last Admin: 08/08/19 07:51 Dose: 325 mg Atorvastatin Calcium (Lipitor) 10 mg PO HS [facility] Last Admin: 08/07/19 22:16 Dose: 10 mg Benzonatate (Tessalon) 200 mg PO TIDPRN PRN PRN Reason: Cough Last Admin: 08/06/19 06:17 Dose: 200 mg Dextrose/Water (Dextrose 50%) 25 gm SLOW IVP PRN PRN PRN Reason: Hypoglycemia Diltiazem HCl (Cardizem Cd) 240 mg PO DAILY [facility] Famotidine (Pepcid) 20 mg PO BID [facility] Last Admin: 08/08/19 07:52 Dose: 20 mg Glucagon (Glucagon) 1 mg IM PRN PRN PRN Reason: Hypoglycemia Guaifenesin/Dextromethorphan (Mucinex Dm) 1 tab PO Q12HR [facility] Last Admin: 08/08/19 14:22 Dose: 1 tab Hydralazine HCl (Apresoline) 10 mg SLOW IVP Q4H PRN PRN Reason: SBP > 180 and HR < 70 Last Admin: 08/07/19 05:43 Dose: 10 mg Hydroxyzine HCl (Atarax) 25 mg PO HS [facility] Last Admin: 08/07/19 22:18 Dose: 25 mg Dextrose/Water (D5w) 1,000 mls @ 0 mls/hr IV .Q0M PRN PRN Reason: Hypoglycemia Insulin Human Regular (Humulin R) 0 units SC .MILD SLIDING SCALE PRN PRN Reason: Mild Correctional Scale Last Admin: 08/08/19 12:15 Dose: 3 unit Insulin Human Regular (Humulin R) 0 units SC .BEDTIME SLIDING SC PRN PRN Reason: Bedtime Correctional Scale Last Admin: 08/07/19 00:12 Dose: 2 unit Ketorolac Tromethamine (Toradol) 30 mg IVP Q6HR [facility] Stop: 08/09/19 12:01 Last Admin: 08/08/19 12:14 Dose: 30 mg Levofloxacin (Levaquin) 750 mg PO 0600 [facility] Last Admin: 08/08/19 05:13 Dose: 750 mg Losartan Potassium (Cozaar) 100 mg PO DAILY [facility] Last Admin: 08/08/19 07:51 Dose: 100 mg Magnesium Hydroxide (Milk Of Magnesium) 30 ml PO DAILYPRN PRN PRN Reason: Constipation Last Admin: 08/05/19 14:45 Dose: 30 ml Melatonin (Melatonin) 3 mg PO HS PRN PRN Reason: Insomnia Last Admin: 08/03/19 02:24 Dose: 3 mg Metformin HCl (Glucophage) 1,000 mg PO BID-WM [facility] Last Admin: 08/08/19 07:52 Dose: 1,000 mg Mometasone Furoate/Formoterol Fumar (Dulera 200 Mcg/5 Mcg Inhaler) 2 puff INH BID-RT [facility] Last Admin: 08/08/19 07:31 Dose: 2 puff Montelukast Sodium (Singulair) 10 mg PO HS [facility] Last Admin: 08/07/19 22:18 Dose: 10 mg Nitroglycerin (Nitrostat) 0.4 mg SL Q5MIN PRN PRN Reason: Chest Pain Ondansetron HCl (Zofran Odt) 4 mg PO Q6H PRN PRN Reason: Nausea/Vomiting Ondansetron HCl (Zofran) 4 mg IVP Q6H PRN PRN Reason: Nausea/Vomiting Last Admin: 08/03/19 18:10 Dose: 4 mg Potassium Chloride (Klor-Con 10) 10 meq PO DAILY [facility] Last Admin: 08/08/19 07:51 Dose: 10 meq Prednisone (Prednisone) 40 mg PO QAM-WM DIONE Last Admin: 08/08/19 07:52 Dose: 40 mg Sodium Chloride (Flush - Normal Saline) 10 ml IVF Q12HR DIONE Last Admin: 08/08/19 07:53 Dose: 10 ml Sodium Chloride (Flush - Normal Saline) 10 ml IVF PRN PRN PRN Reason: Saline Flush Last Admin: 08/08/19 12:14 Dose: 10 ml Vital Signs & Weight: Vital Signs Temp Pulse Resp Pulse Ox 08/08/19 14:16 97 18 96 08/08/19 11:00 100.8 F H 08/08/19 10:53 105 H 20 95 08/08/19 07:38 98 08/08/19 07:32 99 08/08/19 07:29 106 H 18 99 08/08/19 07:00 99.6 F Weight 290 lb 12.635 oz - Physical Exam General: alert & oriented x3, appears well, no apparent distress HEENT: mucus membranes moist Neck: supple neck, midline trachea Cardiac: regular rate and rhythm, no murmur Lungs: clear to auscultation, normal breath sounds Neuro: grossly intact Abdomen: active bowel sounds, soft - Labs Result Diagrams: 08/06/19 09:22 08/08/19 04:42 Troponin/CKMB CK-MB (CK-2) 2.6 ng/mL (0-6.6) 08/03/19 02:31 Troponin I 0.050 ng/mL (< 0.028) H 08/07/19 07:34 - Telemetry Sinus rhythms and dysrhythmias: sinus tachycardia - Assessment/Plan Assessment/Plan: 1. A Fib RVR - in SR. no recurrence -rate control with CCB. Add dig if needed. - consider multaq vs flecainide in future if needed 2. Sinus tachycardia 3. CHADS2-VASC: 1-2 - continue ASA 81mg PO QD for now Increase diltiazem today to 240mg. Will continue to monitor. No further A Fib seen overnight.
--- NOTE | 2019-08-08 16:37 | PRG ---
DATE OF SERVICE: 08/08/2019 SUBJECTIVE: Rosa Isela Prasad is sitting in bedside chair, saying she felt much better today. OBJECTIVE: VITAL SIGNS: Heart rate is 97, respiratory rate is 18, oximetry is 96% on room air, blood pressure this afternoon is 133/97. LUNGS: Remarkable for end-expiratory wheezes. HEART: Regular rhythm. ABDOMEN: Soft. EXTREMITIES: Without edema. LABORATORY DATA: White count 10.1 two days ago. There is no CBC today. Electrolytes are normal today. Creatinine is 0.8. IMPRESSION AND PLAN: 1. Asthma. 2. Chest pain with negative nuclear stress test. Cardiology is following her again. 3. Obesity. 4. Atrial fibrillation in sinus rhythm at this time. 5. Hypertension. We will follow with recommendations from pulmonary standpoint, but her asthma in my opinion is a very small component of her current complaints. Job ID: [id number]
[2019-08-08] MEDS: Montelukast Sodium 10 mg Tablet PO SCH (21:20)
[2019-08-08] MEDS: Atorvastatin Calcium 10 MG TAB PO SCH (21:20)
[2019-08-08] MEDS: hydrOXYzine 25 MG TAB PO SCH (21:21)
[2019-08-09] MEDS: Ketorolac Tromethamine 30 MG/ML VIAL IVP SCH ×3 (03:14→13:02)
[2019-08-09 06:35] LABS: Hemoglobin 12.4 g/dL (12.0-16.0); Mean Corpuscular HGB CONC 32.5 g/dL (32.0-36.0); Mean Corpuscular Hemoglobin 25.8 pg (27.0-31.0); Mean Corpuscular Volume 79.4 fL (78.0-98.0); Mean Platelet Volume 7.1 fL (7.4-10.4); Platelet Count 312 thou/uL (130-400); RBC Distribution Width 14.7 % (11.5-14.5); Red Blood Cell (RBC) Count 4.82 mill/uL (4.20-5.40); White Blood Cell (WBC) Count 8.8 thou/uL (4.8-10.8)
[2019-08-09] MEDS: Mometasone/Formoterol 120 PUFF INHALER INH SCH (06:48)
[2019-08-09 07:01] LABS: Anion Gap 16 mmol/L (10-20); BUN (Urea Nitrogen) 10 mg/dL (7.0-18.7); Calc. Creatinine Clearance 198 mL/min (70-130); Calcium 9.1 mg/dL (7.8-10.44); Carbon Dioxide 23 mmol/L (22-29); Chloride 100 mmol/L (98-107); Estimated GFR-MDRD Greater than 90; Glucose 122 mg/dL (70-105); Magnesium 1.9 mg/dL (1.6-2.6); Potassium 3.8 mmol/L (3.5-5.1); Sodium 135 mmol/L (136-145)
[2019-08-09] MEDS: Potassium Chloride 10 MEQ TAB PO SCH (07:54)
[2019-08-09] MEDS: Aspirin 325 mg Enteric Coated Tablet PO SCH (07:54)
[2019-08-09] MEDS: Famotidine 20 MG TAB PO SCH (07:54)
[2019-08-09] MEDS: metFORMIN 500 MG TAB PO SCH (07:55)
[2019-08-09] MEDS: guaiFENesin/DM ER PO SCH (07:55)
[2019-08-09] MEDS: Losartan 25 MG TAB PO SCH (07:55)
[2019-08-09] MEDS: predniSONE 20 MG TAB PO SCH (07:55)
--- NOTE | 2019-08-09 09:08 | RAD ---
EXAM: Chest PA and lateral: HISTORY: Shortness of breath. Asthma. COMPARISON: 08/07/2019 FINDINGS: Stable multiple metallic densities. Heart: Normal cardiac silhouette Aorta: Unremarkable Pulmonary vessels: Normal Costophrenic angles: Costophrenic angles are clear. Lungs: No consolidation or masses. Pneumothorax: No pneumothorax Osseous structures: No osseous abnormalities IMPRESSION: No acute cardiopulmonary process.
[2019-08-09 11:10] VITALS: BP 148/92; TEMP 97.9
--- NOTE | 2019-08-09 12:26 | PDOC.CPN ---
- Subjective Date: 08/09/19 Time: 12:26 Interval history: The pt seen and examined. No overnight events. No cardiac complaints. - Objective Allergies/Adverse Reactions: Allergies Allergy/AdvReac Type Severity Reaction Status Date / Time No Known Allergies Allergy Verified 08/02/19 20:57 Visit Medications: Current Medications Acetaminophen (Tylenol) 1,000 mg PO Q6H PRN PRN Reason: Mild Pain (1-3) Last Admin: 08/07/19 05:44 Dose: 1,000 mg Albuterol/Ipratropium (Duoneb) 3 ml NEB [id number] [facility] Last Admin: 08/09/19 09:47 Dose: 3 ml Aspirin (Ecotrin) 325 mg PO DAILY [facility] Last Admin: 08/09/19 07:54 Dose: 325 mg Atorvastatin Calcium (Lipitor) 10 mg PO HS [facility] Last Admin: 08/08/19 21:20 Dose: 10 mg Benzonatate (Tessalon) 200 mg PO TIDPRN PRN PRN Reason: Cough Last Admin: 08/06/19 06:17 Dose: 200 mg Dextrose/Water (Dextrose 50%) 25 gm SLOW IVP PRN PRN PRN Reason: Hypoglycemia Diltiazem HCl (Cardizem Cd) 180 mg PO DAILY [facility] Last Admin: 08/09/19 08:50 Dose: Not Given Famotidine (Pepcid) 20 mg PO BID [facility] Last Admin: 08/09/19 07:54 Dose: 20 mg Glucagon (Glucagon) 1 mg IM PRN PRN PRN Reason: Hypoglycemia Guaifenesin/Dextromethorphan (Mucinex Dm) 1 tab PO Q12HR [facility] Last Admin: 08/09/19 07:55 Dose: 1 tab Hydralazine HCl (Apresoline) 10 mg SLOW IVP Q4H PRN PRN Reason: SBP > 180 and HR < 70 Last Admin: 08/07/19 05:43 Dose: 10 mg Hydroxyzine HCl (Atarax) 25 mg PO HS [facility] Last Admin: 08/08/19 21:21 Dose: 25 mg Dextrose/Water (D5w) 1,000 mls @ 0 mls/hr IV .Q0M PRN PRN Reason: Hypoglycemia Insulin Human Regular (Humulin R) 0 units SC .MILD SLIDING SCALE PRN PRN Reason: Mild Correctional Scale Last Admin: 08/08/19 16:53 Dose: 4 unit Insulin Human Regular (Humulin R) 0 units SC .BEDTIME SLIDING SC PRN PRN Reason: Bedtime Correctional Scale Last Admin: 08/07/19 00:12 Dose: 2 unit Levofloxacin (Levaquin) 750 mg PO 0600 [facility] Last Admin: 08/09/19 06:25 Dose: 750 mg Losartan Potassium (Cozaar) 100 mg PO DAILY [facility]ION[facility] Last Admin: 08/09/19 07:55 Dose: 100 mg Magnesium Hydroxide (Milk Of Magnesium) 30 ml PO DAILYPRN PRN PRN Reason: Constipation Last Admin: 08/05/19 14:45 Dose: 30 ml Melatonin (Melatonin) 3 mg PO HS PRN PRN Reason: Insomnia Last Admin: 08/03/19 02:24 Dose: 3 mg Metformin HCl (Glucophage) 1,000 mg PO BID-WM [facility] Last Admin: 08/09/19 07:55 Dose: 1,000 mg Mometasone Furoate/Formoterol Fumar (Dulera 200 Mcg/5 Mcg Inhaler) 2 puff INH BID-RT [facility] Last Admin: 08/09/19 06:48 Dose: 2 puff Montelukast Sodium (Singulair) 10 mg PO HS [facility] Last Admin: 08/08/19 21:20 Dose: 10 mg Nitroglycerin (Nitrostat) 0.4 mg SL Q5MIN PRN PRN Reason: Chest Pain Ondansetron HCl (Zofran Odt) 4 mg PO Q6H PRN PRN Reason: Nausea/Vomiting Ondansetron HCl (Zofran) 4 mg IVP Q6H PRN PRN Reason: Nausea/Vomiting Last Admin: 08/03/19 18:10 Dose: 4 mg Potassium Chloride (Klor-Con 10) 10 meq PO DAILY [facility] Last Admin: 08/09/19 07:54 Dose: 10 meq Prednisone (Prednisone) 40 mg PO QAM-WM [facility] Last Admin: 08/09/19 07:55 Dose: 40 mg Sodium Chloride (Flush - Normal Saline) 10 ml IVF Q12HR [facility] Last Admin: 08/09/19 07:56 Dose: 10 ml Sodium Chloride (Flush - Normal Saline) 10 ml IVF PRN PRN PRN Reason: Saline Flush Last Admin: 08/08/19 12:14 Dose: 10 ml Vital Signs & Weight: Vital Signs Temp Pulse Resp BP BP Pulse Ox 08/09/19 11:08 97.9 F 94 20 148/92 H 96 08/09/19 09:47 99 16 96 08/09/19 08:00 98.1 F 58 L 18 136/105 H 95 08/09/19 07:54 87 08/09/19 06:51 87 16 95 08/09/19 06:50 95 08/09/19 06:48 87 16 95 08/09/19 04:00 98.7 F 94 17 137/90 96 08/09/19 01:44 93 18 97 Weight 287 lb - Physical Exam General: alert & oriented x3 Neck: supple neck Cardiac: regular rate and rhythm, S1/S2 Lungs: clear to auscultation, wheezes Neuro: cranial nerve 2-12 intact Abdomen: unremarkable Extremities: no cyanosis Skin: clear Musculoskeletal: normal range of motion - Labs Result Diagrams: 08/09/19 05:17 08/09/19 05:17 Troponin/CKMB CK-MB (CK-2) 2.6 ng/mL (0-6.6) 08/03/19 02:31 Troponin I 0.050 ng/mL (< 0.028) H 08/07/19 07:34 - Telemetry Sinus rhythms and dysrhythmias: sinus rhythm - Assessment/Plan Assessment/Plan: 1. S/p Afib with RVR - remains in SR/ST;On Diltiazem 180mg qd;Not on BBlocker due to hx of COPD/Asthma; Only ASA since [id number] score 1. Appreciate EP input. 2. Type II MD - Stress test showed no reversible ischemia; 3. Sepsis - on ABX IV; managed by PCP 4. HTN - stable 5. DM type 2 - managed by PCP 6. Asthmatic bronchitis - on breathing tx 7. Cannabis abuse 8. COPD/asthma- managed by banking paralegal 9. Obese - weight management education given to the pt MAR reviewed * Echo on 08/05/2019 with EF 50-55%, mild MR, TR, and MD * From cardiac standpoint, the pt is stable to d/c home. The pt will f/u with Dr Chavez' office within 2-4 wks. I agree with the A/P by the [employer]. Will see the pt. in f/u in the office. Continue diltiazem. ban
[2019-08-09] MEDS: Insulin Regular 300 UNITS/3 ML VIAL SC PRN (13:02)
--- NOTE | 2019-08-09 15:00 | PRG ---
DATE OF SERVICE: 08/09/2019 SUBJECTIVE: Rosa Isela Prasad says she is feeling back to her baseline. Her says she came in at a 1 and now, she is a 5, which is normal. OBJECTIVE: VITAL SIGNS: Her blood pressure 140/90, heart rate 94. She is afebrile, respiratory . LUNGS: Completely clear. She has no wheezing. HEART: Regular rhythm. ABDOMEN: Soft. The patient has been cleared for discharge. IMPRESSION: 1. Chest pain, felt to be cardiac. 2. Asthma, only mild factor during this admission. 3. History of atrial ablation back in sinus rhythm. 4. History of hypertension. 5. Diabetes. Follow up as an outpatient, if she wishes. Stable for discharge. Job ID: [id number]
--- NOTE | 2019-08-09 16:45 | PDOC.CPN ---
- Subjective Date: 08/09/19 Time: 11:00 Interval history: EP PROGRESS NOTE: Followup for AFib. HR remains 90-110. Feels fine. no further heart racing, palpitations, chest pain, or stroke like symptoms. Likely DC later today - Review of Systems General: denies: fever/chills, weight/appetite/sleep changes, night sweats, fatigue Respiratory: denies: cough, congestion, shortness of breath, exercise intolerance Cardiovascular: denies: chest pain, palpitation, edema, paroxysmal nocturnal dyspnea, orthopnea Gastrointestinal: denies: nausea, vomiting, diarrhea, constipation, abd pain, GI bleeding - Objective Allergies/Adverse Reactions: Allergies Allergy/AdvReac Type Severity Reaction Status Date / Time No Known Allergies Allergy Verified 08/02/19 20:57 Vital Signs & Weight: Vital Signs Temp Pulse Resp BP Pulse Ox 08/09/19 11:08 97.9 F 94 20 148/92 H 96 08/09/19 09:47 99 16 96 08/09/19 08:00 98.1 F 58 L 18 136/105 H 95 08/09/19 07:54 87 08/09/19 06:51 87 16 95 08/09/19 06:50 95 08/09/19 06:48 87 16 95 Weight 287 lb - Physical Exam General: alert & oriented x3, appears well, no apparent distress HEENT: mucus membranes moist, normocephaly Neck: supple neck, midline trachea, no JVD/HJR, no masses, no bruit, no lymphadenopathy, no thromegaly Cardiac: regular rhythm, tachycardia Lungs: clear to auscultation, normal breath sounds, normal exam, no wheeze, rales, rhonchi - Labs Result Diagrams: 08/09/19 05:17 08/09/19 05:17 Troponin/CKMB CK-MB (CK-2) 2.6 ng/mL (0-6.6) 08/03/19 02:31 Troponin I 0.050 ng/mL (< 0.028) H 08/07/19 07:34 - Telemetry Sinus rhythms and dysrhythmias: sinus rhythm - Assessment/Plan Assessment/Plan: 1. A Fib RVR - in SR. no recurrence -rate control with CCB. Add dig if needed. - consider multaq vs flecainide in future if needed 2. Sinus tachycardia 3. CHADS2-VASC: 1-2 - continue ASA 81mg PO QD for now Increase diltiazem to 240mg yesterday but was held this AM and reduced to 180mg daily. No further A Fib seen overnight. She will likely need more aggressive rate control. OK for DC by EP.
--- NOTE | 2019-08-11 09:52 | EKG ---
Test Reason : Blood Pressure : / mmHG Vent. Rate : 126 BPM Atrial Rate : 126 BPM P-R Int : 120 ms QRS Dur : 076 ms QT Int : 336 ms P-R-T Axes : 049 047 030 degrees QTc Int : 486 ms Undetermined rhythm Nonspecific ST and T wave abnormality Abnormal ECG Confirmed by ZOILA ONOFRE MD ([id number]) on 08/11/2019 9:52:33 AM Referred By: OBI Confirmed By:ZOILA ONOFRE MD
== END 2019-08-09 15:00 | disposition home or self-care (01) | DRG 871 ==
LOC: ERS 15:19 → 2NO 20:53 → CCU 08-07 07:45 → 2NO 08-08 18:21
PROVIDERS: ADMIT Family Medicine; ATTEND Family Medicine
DX: A41.9 Sepsis, unspecified organism (principal); J96.01 Acute respiratory failure with hypoxia; I21.A1 Myocardial infarction type 2; J44.1 Chronic obstructive pulmonary disease with (acute) exacerbation; I47.1 Supraventricular tachycardia; Z68.42 Body mass index [BMI] 45.0-49.9, adult; I10 Essential (primary) hypertension; F12.90 Cannabis use, unspecified, uncomplicated; E11.9 Type 2 diabetes mellitus without complications; F41.9 Anxiety disorder, unspecified; F32.9 Major depressive disorder, single episode, unspecified; F12.10 Cannabis abuse, uncomplicated; J45.909 Unspecified asthma, uncomplicated; E78.5 Hyperlipidemia, unspecified; E78.00 Pure hypercholesterolemia, unspecified; D50.9 Iron deficiency anemia, unspecified; E87.6 Hypokalemia; E66.01 Morbid (severe) obesity due to excess calories; I48.0 Paroxysmal atrial fibrillation; Z83.3 Family history of diabetes mellitus; Z82.49 Family history of ischemic heart disease and other diseases of the circulatory system
CPT/HCPCS: 36415; 36416; 71045; 71046; 71275; 78452; 80048; 80053; 80069; 80202; 80306; 81003; 81025; 82553; 82728; 83540; 83550; 83605; 83690; 83735; 83880; 84484; 85007; 85025; 85027; 85379; 87040; 87086; 87804; 93005; 93010; 93017; 93306; 94640; 96361; 96365; A9500; J0360; J0692; J0696; J1815; J1885; J2270; J2405; J2785; J2916; J2920; J3370; J3480; J3490; J7050; J7512; J7608; J7620; Q9967

== ENCOUNTER 2020-10-12 07:16 | Emergency (ER) | payer OTHER | END 2020-10-12 07:41 | disposition home or self-care (01) | LOC: ERS 07:16 | DX: K04.7 Periapical abscess without sinus (principal); K02.9 Dental caries, unspecified; J45.909 Unspecified asthma, uncomplicated; I10 Essential (primary) hypertension; E11.9 Type 2 diabetes mellitus without complications | CPT/HCPCS: 99282 ==

== ENCOUNTER 2021-07-14 08:30 | Outpatient (CLI) | payer MEDICAID, OTHER | END 2021-07-14 08:31 | disposition home or self-care (01) | LOC: BICMAMMO 08:30 | PROVIDERS: ATTEND Family Medicine | DX: Z12.31 Encounter for screening mammogram for malignant neoplasm of breast (principal) | CPT/HCPCS: 77067 ==

== ENCOUNTER 2021-07-28 10:07 | Outpatient (CLI) | payer OTHER | END 2021-07-28 10:08 | disposition home or self-care (01) | LOC: DTY/OP 10:07 | PROVIDERS: ATTEND Surgery | DX: E66.01 Morbid (severe) obesity due to excess calories (principal) | CPT/HCPCS: 97802 ==

== ENCOUNTER 2022-04-16 10:34 | Outpatient (CLI) | payer OTHER | END 2022-04-16 10:35 | disposition home or self-care (01) | LOC: LABBT 10:34 | PROVIDERS: ATTEND Family Medicine | DX: U07.1 COVID-19 (principal) | CPT/HCPCS: 87811 ==

== ENCOUNTER 2022-04-21 08:21 | Outpatient (CLI) | payer OTHER | END 2022-04-21 08:22 | disposition home or self-care (01) | LOC: RAD 08:21 | PROVIDERS: ATTEND Family Medicine | DX: Z01.818 Encounter for other preprocedural examination (principal); K21.9 Gastro-esophageal reflux disease without esophagitis | CPT/HCPCS: 74246 ==

== ENCOUNTER 2022-11-04 08:36 | Outpatient (CLI) | payer OTHER | END 2022-11-04 08:37 | disposition home or self-care (01) | LOC: BICRAD 08:36 | PROVIDERS: ATTEND Family Medicine | DX: M79.604 Pain in right leg (principal); M54.50 Low back pain, unspecified; M47.896 Other spondylosis, lumbar region | CPT/HCPCS: 72100 ==